=== PATIENT | female | born 1965 | race African-American/Black ===

== ENCOUNTER 2017-05-17 13:20 | Emergency (ER) | payer OTHER ==
[2017-05-17 13:27] VITALS: BMI 21.0
--- NOTE | 2017-05-17 13:59 | PDOC ---
History of Present Illness - General Chief Complaint: Respiratory Stated Complaint: SICK Time Seen by Provider: 05/17/17 13:34 History Source: Patient Exam Limitations: No Limitations - History of Present Illness Initial Comments: This is a 51 YOF with h/o asthma (uses albuterol, Advair, and montelukast), SLE (not on steroids), HTN, and pre-diabetes who presents from her PCP's office ( Ferny Cardoza) c/o three weeks of progressive cough with green phlegm, left lower rib pain, fever to 103 at home, chills, sore throat, shortness of breath, palpitations at night, and nausea. Her rib pain is in both the front and back of the left lower ribs and is 10/10, and worsens when she lays flat. She saw Dr. Cardoza three weeks ago and was prescribed a Z-pack which she took. She was also prescribed an antifungal for a years infection in the urine at that time. She followed up with Dr. Cardoza today and was intructed to come here to the ED. 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 Past History - Past Medical History Allergies/Adverse Reactions: Allergies Allergy/AdvReac Type Severity Reaction Status Date / Time ibuprofen [From Motrin] Allergy Mild Rash Verified 05/17/17 13:54 lactose Allergy Mild Nausea Verified 05/17/17 13:54 morphine Allergy Mild Rash Verified 05/17/17 13:54 theophylline anhydrous Allergy Mild Rash Verified 05/17/17 13:54 [From Brad-Dur] hydralazine AdvReac Mild Itching Verified 05/17/17 13:54 Home Medications: Ambulatory Orders Enalapril Maleate [Vasotec -] 20 mg PO DAILY 06/17/15 Fluticasone/Salmeterol [Advair 250-50 Diskus] 1 each IH BID PRN 06/17/15 Hydrochlorothiazide [Hctz -] 50 mg PO DAILY 06/17/15 Montelukast Na [Singulair -] 10 mg PO HS 06/17/15 Acetaminophen/Caffeine/Butalb [Fioricet -] 1 tab PO TID PRN #12 tablet MDD 3 11/16 Albuterol Sulfate Inhaler - [Ventolin Hfa Inhaler -] 1 - 2 inh PO QID 03/08/16 Hydrochlorothiazide [Hctz -] 50 mg PO DAILY 03/08/16 Metoclopramide HCl [Reglan] 10 mg PO BID PRN #10 tablet MDD 2 03/08/16 Simvastatin [Zocor -] 40 mg PO HS 03/08/16 Albuterol 0.083% Nebulizer Maria Fernanda [Ventolin 0.083% Nebulizer Soln -] 1 neb NEB Q4H #20 vial 05/17/17 Amoxicillin - [Amoxicillin 500mg Capsule -] 500 mg PO TID #21 capsule 05/17/17 Prednisone [Deltasone] 40 mg PO DAILY #4 tablet 05/17/17 Anemia: Yes (iron defeciency) Asthma: Yes Cardiac Disorders: Yes (chest pain) COPD: No GI Disorders: Yes (constipated) HTN: Yes Hypercholesterolemia: Yes - Surgical History Abdominal Surgery: Yes Orthopedic Surgery: Yes (b/l knee arthscopy) - Immunization History Immunization Up to Date: No - Suicide/Smoking/Psychosocial Hx Smoking Status: No Smoking History: Never smoked Have you smoked in the past 12 months: No Number of Cigarettes Smoked Daily: 0 Hx Alcohol Use: No Drug/Substance Use Hx: No Substance Use Type: None Hx Substance Use Treatment: No Review of Systems - Review of Systems Able to Perform ROS?: Yes Constitutional: Yes: Chills, Fever. No: Unexplained wgt Loss HEENTM: Yes: Ear Pain, Difficulty Swallowing (2/2 pain). No: Nose Congestion Respiratory: Yes: Cough, Shortness of Breath, Productive cough Cardiac (ROS): Yes: Chest Pain (left lower rib pain), Palpitations (at night when laying flat only) ABD/GI: Yes: Nausea. No: Constipated, Diarrhea, Vomiting : No: Burning, Dysuria Musculoskeletal: No: Back Pain, Neck Pain Integumentary: No: Bruising, Rash Neurological: No: Headache, Numbness, Tingling, Weakness, Dizziness Endocrine: No: Unexplained Weight Gain, Unexplained Weight Loss *Physical Exam - Vital Signs Last Vital Signs Temp Pulse Resp BP Pulse Ox 98.1 F 97 H 22 142/92 97 05/17/17 13:24 05/17/17 13:24 05/17/17 13:24 05/17/17 13:24 05/17/17 13:24 - Physical Exam General Appearance: Yes: Nourished, Appropriately Dressed, Mild Distress, Other (intermittently tearful and anxious, answers questions appropriately) HEENT: positive: EOMI, Normal Voice, Hearing Grossly Normal, TM Erythema (left) . negative: Scleral Icterus (R), Scleral Icterus (L), Nasal Congestion Neck: positive: Trachea midline, Supple. negative: Tender, Rigid Respiratory/Chest: positive: Lungs Clear, Normal Breath Sounds. negative: Chest Tender, Respiratory Distress, Crackles, Rhonchi, Stridor, Wheezing Cardiovascular: positive: Regular Rhythm, Regular Rate, Murmur (2/6 late systolic murmur) Gastrointestinal/Abdominal: positive: Normal Bowel Sounds, Soft. negative: Tender, Organomegaly, Pulsatile Mass, Guarding Musculoskeletal: positive: Normal Inspection. negative: Decreased Range of Motion, Vertebral Tenderness Extremity: positive: Normal Capillary Refill, Normal Inspection, Normal Range of Motion. negative: Tender, Cyanosis Integumentary: positive: Normal Color, Dry, Warm. 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 VS wnl and patient in mild distress but no respiratory distress, 2/6 systolic murmur at LUSB. Left EAC with mild erythema without TM changes, tender to manipulation of the tragus. DDX IBNLT PNA, bronchitis, pericarditis, CHF, OM, anemia, ACS, etc. Ordered is CBCD, CMP, Mg, Phos, coags, cardiac panel, lactate, blood cx, UA cx, EKG. SXS control with Tylenol, GI cocktail, prednisone, robitussin AC. 05/17/17 15:07 Spoke with Pt's PCP Ferny Cardoza who states she initially planned to give Pt E- Rx for Levaquin and Prednisone. Instead sent patient to the ED for generalized weakness, lack of improvement after nebulizer tx. States patient always has musculoskeletal pain complaints in her office. She was concerned the patient should have additional blood work and CXR, further workup. Patient is found to be hypokalemic to 2.8 and this is replaced with 60 mEq potassium solution. EKG with flipped T-waves inferiorly-anteriorly which she has had in the past. Repeat troponin is negative, repeat potassium is wnl. E-Rx sent for amoxicillin for OM, prednisone, and albuterol nebs. The patient is appropriate for DC home with close OP followup. *DC/Admit/Observation/Transfer Diagnosis at time of Disposition: Hypokalemia, Bronchitis Otitis media Qualifiers: Otitis media type: unspecified Chronicity: acute Qualified Code(s): H66.90 - Otitis media, unspecified, unspecified ear - Discharge Dispostion Disposition: HOME Condition at time of disposition: Stable Admit: No - Prescriptions Prescriptions: Albuterol 0.083% Nebulizer Maria Fernanda [Ventolin 0.083% Nebulizer Soln -] 1 neb NEB Q4H #20 vial Amoxicillin - [Amoxicillin 500mg Capsule -] 500 mg PO TID #21 capsule Prednisone [Deltasone] 40 mg PO DAILY #4 tablet - Referrals Referrals: Ferny Cardoza [Primary Care Provider] - - Patient Instructions Additional Instructions: You were seen in the ER for cough, sore throat, rib pain, fever, and palpitations. We did blood laboratories, urine laboratories, EKGs and a chest x- ray and we found low potassium in your blood, but we did not find any other new changes that were concerning. We gave you a potassium supplement and re-checked it to be normal. Though we did not see anything on your chest x-ray, we believe you have bronchitis/asthma and are sending prednisone to your pharmacy. We did find a small left ear infection and we are sending amoxicillin to the [facility] as well. Please take the whole prescription of amoxicillin. Please also take Tylenol as needed for rib pain. Follow up with Dr. Cardoza to discuss your low potassium. - Post Discharge Activity
--- NOTE | 2017-05-17 14:20 | PDOC ---
Attending Attestation - Resident Resident Name: Linnea Guzman - ED Attending Attestation I have performed the following: I have examined & evaluated the patient, The case was reviewed & discussed with the resident, I agree w/resident's findings & plan, Exceptions are as noted - HPI HPI: 05/17/17 14:19 51y F hx of asthma, lupus, htn, hl, prsents with 3 weeks of cough productive of greenish phlegm ssociated with fever/chlls and L/R sided chest/rip pain, tmax of 103 at home, sore throat. was given zpack by pmd that she has completed , but she has been having pain i nthe b/l chest since saturday worse when she takes a deep brath and coughs. Pt notes her cough is productive of greenish sputum sometimes tingued with pink. Pt denies any LE edema, calf pain. 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 suspect the pts symptoms c/w viral syndrome cp likely msk rib pain will give pts robitussin AC, lidocain for her sore throat, tylenol fo rpain pts labs reviewed k noted hypokalemic to 2.8 may be secondary to HCTZ use and decreased PO intake. will replete and will hav pt recheck this with her PMD. cxr unremarkable w/o signs of pna will erasss and obtain trop x 2 Heart Score/ECG Review - ECG Impressions Comment:: 05/17/17 17:43 ekg performed 05/17/2017 at 14:55 NSR rate of 71 twi in II, III, AVF
[2017-05-17] MEDS ORDERED: ACETAMINOPHEN 500 MG TABLET (FP) PO ONE (14:32)
[2017-05-17 14:56] LABS: BASO % 0.7 % (0-2.0); EOS % 0.8 % (0-4.5); MCH 29.6 pg (25.7-33.7); MCHC 33.2 g/dl (32.0-36.0); MEAN CELL VOLUME 89.2 fl (80-96); MEAN PLT VOLUME 9.5 fl (7.5-11.1); NEUT % 47.2 % (42.8-82.8); PLATELET COUNT 199 K/MM3 (134-434); RDW 13.1 % (11.6-15.6); WHITE BLOOD COUNT 4.3 K/mm3 (4.0-10.0)
[2017-05-17] MEDS ORDERED: ACETAMINOPHEN 325 MG TABLET (FP) ONE (14:59)
[2017-05-17 15:03] LABS: INR 1.08 (0.82-1.09); PROTHROMBIN TIME (PATIENT) 12.2 SEC (9.98-11.88)
[2017-05-17] MEDS ORDERED: ACETAMINOPHEN 650 MG/20.3 ML ORAL SOLUTION (CUPS) ONE (15:03)
[2017-05-17 15:25] LABS: ALBUMIN 4.2 g/dl (3.4-5.0); ANION GAP 8 (8-16); BILIRUBIN,TOTAL 0.8 mg/dL (0.2-1.0); CALCIUM 8.8 mg/dL (8.5-10.1); CO2 31 mmol/L (21-32); CREATININE 0.7 mg/dL (0.55-1.02); GLUCOSE,RANDOM 132 mg/dL (74-106); SGOT/AST 16 U/L (15-37); SGPT/ALT 24 U/L (12-78); TOT PROT 7.2 g/dl (6.4-8.2)
[2017-05-17 15:28] LABS: ALK PHOS 95 U/L (45-117); CPK 72 IU/L (26-192); TROPONIN I < 0.02 ng/ml (0.00-0.05)
[2017-05-17] MEDS ORDERED: POTASSIUM CHLORIDE ORAL LIQUID 20 MEQ/15 ML PO ONE (16:01)
[2017-05-17] MEDS ORDERED: POTASSIUM CHLORIDE ORAL LIQUID 20 MEQ/15 ML ONE (16:20)
[2017-05-17 16:37] LABS: URINE APPEARANCE SLCLOUDY; URINE BILIRUBIN NEGATIVE (NEGATIVE); URINE BLOOD NEGATIVE (NEGATIVE); URINE COLOR AMBER; URINE GLUCOSE (UA) NEGATIVE (NEGATIVE); URINE KETONE 1+ (NEGATIVE); URINE LEUK ESTERASE NEGATIVE (NEGATIVE); URINE NITRITE NEGATIVE (NEGATIVE); URINE PROTEIN NEGATIVE (NEGATIVE)
[2017-05-17] MEDS ORDERED: LIDOCAINE VISCOUS 2% ORAL/TOP 20 ML UNIT-DOSE CUP MM ONE (17:02)
[2017-05-17] MEDS ORDERED: guaiFENesin/CODEINE 10 ML UNIT-DOSE CUPS PO ONE (17:02)
[2017-05-17] MEDS ORDERED: MAG HYDROX/AL HYDROX/SIMETH 30 ML UNIT-DOSE CUP PO ONE (17:02)
[2017-05-17] MEDS ORDERED: MAG HYDROX/AL HYDROX/SIMETH 30 ML UNIT-DOSE CUP ONE (17:19)
[2017-05-17] MEDS ORDERED: LIDOCAINE VISCOUS 2% ORAL/TOP 20 ML UNIT-DOSE CUP ONE (17:19)
[2017-05-17] MEDS ORDERED: guaiFENesin 200 MG/10 ML 10 ML UNIT-DOSE CUPS ONE (17:20)
[2017-05-17 19:20] LABS: ANION GAP 9 (8-16); CO2 29 mmol/L (21-32); CREATININE 0.7 mg/dL (0.55-1.02); GLUCOSE,RANDOM 152 mg/dL (74-106)
[2017-05-17] MEDS ORDERED: predniSONE 20 MG TABLET (UD) PO ONE (19:21)
[2017-05-17 19:23] LABS: CPK 58 IU/L (26-192); TROPONIN I < 0.02 ng/ml (0.00-0.05)
[2017-05-17] MEDS ORDERED: predniSONE 20 MG TABLET (UD) ONE (19:34)
[2017-05-17 20:00] VITALS: BP 160/90; PULSE 60; TEMP 98
[2017-05-17 20:01] LABS: URINE LEUK ESTERASE Negative (NEGATIVE)
--- NOTE | 2017-05-21 01:47 | EKG ---
Test Reason : Blood Pressure : / mmHG Vent. Rate : 074 BPM Atrial Rate : 074 BPM P-R Int : 180 ms QRS Dur : 088 ms QT Int : 406 ms P-R-T Axes : 016 072 034 degrees QTc Int : 450 ms NORMAL SINUS RHYTHM SEPTAL INFARCT (CITED ON OR BEFORE 18-FEB-2009) ABNORMAL ECG WHEN COMPARED WITH ECG OF 17-MAY-2017 14:55, T WAVE VARIATION Confirmed by LAI STEVENS MD ([id number]) on 05/21/2017 1:47:14 AM Referred By: Confirmed By:LAI STEVENS MD
--- NOTE | 2017-05-21 01:49 | EKG ---
Test Reason : Blood Pressure : / mmHG Vent. Rate : 071 BPM Atrial Rate : 071 BPM P-R Int : 144 ms QRS Dur : 082 ms QT Int : 432 ms P-R-T Axes : 020 066 004 degrees QTc Int : 469 ms NORMAL SINUS RHYTHM WITH SINUS ARRHYTHMIA SEPTAL INFARCT (CITED ON OR BEFORE 18-FEB-2009) ABNORMAL ECG WHEN COMPARED WITH ECG OF 18-JUN-2015 15:36, Confirmed by HILDA MUHAMMAD, LAI ([id number]) on 05/21/2017 1:49:42 AM Referred By: Confirmed By:LAI STEVENS MD
== END 2017-05-17 20:00 | disposition home or self-care (01) ==
LOC: JER 13:20
DX: J40 Bronchitis, not specified as acute or chronic (principal); H66.92 Otitis media, unspecified, left ear; E87.6 Hypokalemia
CPT/HCPCS: 36415; 71020-TC; 80048; 80053; 81003; 82550; 83605; 83880; 84484; 85025; 85610; 87040; 87086; 93005; 93010; 99284-25

== ENCOUNTER 2017-06-26 08:27 | Emergency (ER) | payer OTHER ==
[2017-06-26 08:35] VITALS: BMI 21.9
--- NOTE | 2017-06-26 08:42 | PDOC ---
History of Present Illness - General Chief Complaint: Injury Stated Complaint: FALL/JOB INJURY Time Seen by Provider: 06/26/17 08:42 Past History - Past Medical History Allergies/Adverse Reactions: Allergies Allergy/AdvReac Type Severity Reaction Status Date / Time ibuprofen [From Motrin] Allergy Mild Rash Verified 06/26/17 08:31 lactose Allergy Mild Nausea Verified 06/26/17 08:31 morphine Allergy Mild Rash Verified 06/26/17 08:31 theophylline anhydrous Allergy Mild Rash Verified 06/26/17 08:31 [From Brad-Dur] hydralazine AdvReac Mild Itching Verified 06/26/17 08:31 Home Medications: Ambulatory Orders Enalapril Maleate [Vasotec -] 20 mg PO DAILY 06/17/15 Montelukast Na [Singulair -] 10 mg PO HS 06/17/15 Hydrochlorothiazide [Hctz -] 50 mg PO DAILY 03/08/16 Loratadine [Claritin] 10 mg PO DAILY 06/26/17 Metformin HCl [Glucophage -] 500 mg PO DAILY 06/26/17 Omeprazole 40 mg PO DAILY 06/26/17 Anemia: Yes (iron defeciency) Asthma: Yes Cardiac Disorders: Yes (chest pain) COPD: No GI Disorders: Yes (constipated) HTN: Yes Hypercholesterolemia: Yes - Surgical History Abdominal Surgery: Yes Orthopedic Surgery: Yes (b/l knee arthscopy) - Immunization History Immunization Up to Date: No - Suicide/Smoking/Psychosocial Hx Smoking Status: No Smoking History: Never smoked Have you smoked in the past 12 months: No Number of Cigarettes Smoked Daily: 0 Information on smoking cessation initiated: No Hx Alcohol Use: No Drug/Substance Use Hx: No Substance Use Type: None Hx Substance Use Treatment: No *Physical Exam - Vital Signs Last Vital Signs Temp Pulse Resp BP Pulse Ox 97.7 F 59 L 18 165/89 100 06/26/17 08:31 06/26/17 08:31 06/26/17 08:31 06/26/17 08:31 06/26/17 08:31
[2017-06-26] MEDS ORDERED: ACETAMINOPHEN 325 MG TABLET (FP) ONE (09:03)
[2017-06-26] MEDS ORDERED: CYCLOBENZAPRINE HCL 10 MG TABLET (FP) ONE (09:03)
[2017-06-26] MEDS ORDERED: CYCLOBENZAPRINE HCL 10 MG TABLET (FP) PO ONE (09:04)
[2017-06-26] MEDS ORDERED: ACETAMINOPHEN 325 MG TABLET (FP) PO ONE (09:04)
--- NOTE | 2017-06-26 09:04 | PDOC ---
History of Present Illness - General Chief Complaint: Injury Stated Complaint: FALL/JOB INJURY Time Seen by Provider: 06/26/17 08:42 Past History - Past Medical History Allergies/Adverse Reactions: Allergies Allergy/AdvReac Type Severity Reaction Status Date / Time ibuprofen [From Motrin] Allergy Mild Rash Verified 06/26/17 08:31 lactose Allergy Mild Nausea Verified 06/26/17 08:31 morphine Allergy Mild Rash Verified 06/26/17 08:31 theophylline anhydrous Allergy Mild Rash Verified 06/26/17 08:31 [From Brad-Dur] hydralazine AdvReac Mild Itching Verified 06/26/17 08:31 Home Medications: Ambulatory Orders Enalapril Maleate [Vasotec -] 20 mg PO DAILY 06/17/15 Montelukast Na [Singulair -] 10 mg PO HS 06/17/15 Hydrochlorothiazide [Hctz -] 50 mg PO DAILY 03/08/16 Cyclobenzaprine HCl [Flexeril -] 10 mg PO HS #10 tablet 06/26/17 Loratadine [Claritin] 10 mg PO DAILY 06/26/17 Metformin HCl [Glucophage -] 500 mg PO DAILY 06/26/17 Omeprazole 40 mg PO DAILY 06/26/17 Oxycodone HCl/Acetaminophen [Percocet 5-325 mg Tablet] 1 tab PO Q6H #10 tablet MDD 4 06/26/17 Anemia: Yes (iron defeciency) Asthma: Yes Cardiac Disorders: Yes (chest pain) COPD: No GI Disorders: Yes (constipated) HTN: Yes Hypercholesterolemia: Yes - Surgical History Abdominal Surgery: Yes Orthopedic Surgery: Yes (b/l knee arthscopy) - Immunization History Immunization Up to Date: No - Suicide/Smoking/Psychosocial Hx Smoking Status: No Smoking History: Never smoked Have you smoked in the past 12 months: No Number of Cigarettes Smoked Daily: 0 Information on smoking cessation initiated: No Hx Alcohol Use: No Drug/Substance Use Hx: No Substance Use Type: None Hx Substance Use Treatment: No *Physical Exam - Vital Signs Last Vital Signs Temp Pulse Resp BP Pulse Ox 97.7 F 59 L 18 165/89 100 06/26/17 08:31 06/26/17 08:31 06/26/17 08:31 06/26/17 08:31 06/26/17 08:31 *DC/Admit/Observation/Transfer Diagnosis at time of Disposition: Elbow pain, right Low back strain Qualifiers: Encounter type: initial encounter Qualified Code(s): S39.012A - Strain of muscle, fascia and tendon of lower back, initial encounter Knee pain, right Qualifiers: Chronicity: acute Qualified Code(s): M25.561 - Pain in right knee - Discharge Dispostion Disposition: HOME Condition at time of disposition: Stable Admit: No - Referrals Referrals: Ferny Cardoza [Primary Care Provider] - - Patient Instructions Printed Discharge Instructions: DI for Low Back Pain Additional Instructions: You fell today. All of your x-rays were negative for fracture. Please take Tylenol 500 mg every 4 hours as needed for pain. If you have breakthrough pain please substitute the Tylenol dose with the Percocet. You were also prescribed Flexeril. Please take this medication at 4 and then today at 11. After today take this medication at night. Do not drive after taking this medication as it may make you sleepy. You may use heating packs to the areas to help with pain. Please follow-up with your primary care doctor this week. Return to the emergency department if you have worsening pain, swelling, numbness and tingling down her extremities, bladder or bowel incontinence, or any changes in your symptoms. - Post Discharge Activity Forms/Work/School Notes: Back to Work
--- NOTE | 2017-06-26 10:53 | PDOC ---
*Physical Exam - Vital Signs Last Vital Signs Temp Pulse Resp BP Pulse Ox 97.7 F 59 L 18 165/89 100 06/26/17 08:31 06/26/17 08:31 06/26/17 08:31 06/26/17 08:31 06/26/17 08:31 ED Treatment Course - Medications Given in the ED: ED Medications Discontinued Medications Generic Name Dose Route Start Last Admin Trade Name Freq PRN Reason Stop Dose Admin Acetaminophen 650 mg 06/26/17 09:04 06/26/17 09:24 Tylenol - PO 06/26/17 09:05 650 mg ONCE ONE Administration Cyclobenzaprine HCl 10 mg 06/26/17 09:04 06/26/17 09:24 Flexeril - PO 06/26/17 09:05 10 mg ONCE ONE Administration Medical Decision Making - Medical Decision Making 06/26/17 10:52 This is a 51-year-old female presenting to the emergency department due to mechanical fall. Patient reports lower back pain. No head trauma, loss of consciousness *DC/Admit/Observation/Transfer - Referrals Referrals: Ferny Cardoza [Primary Care Provider] - - Patient Instructions - Post Discharge Activity
[2017-06-26 13:47] VITALS: BP 105/60; PULSE 64; TEMP 97.6
== END 2017-06-26 14:11 | disposition home or self-care (01) ==
LOC: JER 08:27
DX: S39.012A Strain of muscle, fascia and tendon of lower back, initial encounter (principal); V78.1XXA Passenger on bus injured in noncollision transport accident in nontraffic accident, initial encounter; Y92.414 Local residential or business street as the place of occurrence of the external cause; Y93.89 Activity, other specified; Y99.0 Civilian activity done for income or pay; D50.8 Other iron deficiency anemias; I10 Essential (primary) hypertension; E78.00 Pure hypercholesterolemia, unspecified; J45.909 Unspecified asthma, uncomplicated
CPT/HCPCS: 72100-TC; 73070-TC-RT; 73560-TC-RT; 73590-TC-RT; 99282-25

== ENCOUNTER 2017-11-08 23:43 | Emergency (ER) | payer OTHER ==
--- NOTE | 2017-11-09 00:09 | PDOC ---
Attending Attestation - ED Attending Attestation I have performed the following: I have examined & evaluated the patient, The case was reviewed & discussed with the resident, I agree w/resident's findings & plan, Exceptions are as noted - Medical Decision Making 11/09/17 00:17 Documentation prepared by Jayda Arshad, acting as medical service representative for Ashwini Razo MD. <Jayda Arshad - Last Filed: 11/09/17 00:16> - Resident Resident Name: Facundo Hussein - HPI HPI: 11/12/17 09:50 Pt presents to the ED complaining of bilateral shooting leg pain which is chronic but worse than usual and chest pain and headache which are also chronic. Denies change in her chest pain or headache. Also complains of tingling sensation in her feet. History of poorly controlled DM. - Physicial Exam PE: 11/12/17 09:56 Agree with resident exam. Patient is alert, awake and neurologically intact. Lungs are clear. Heart regular rate and rhythm. Abdomen is soft, non tender, non distended. - Medical Decision Making 11/12/17 09:58 Pt presents to the ED complaining of Crampy pain and numbness to bilateral lower extremities consistent with peripheral neuropathy. Patient has a history of poorly controlled DM, and has been resistant to taking her diabetic medications. She was counselled on the importance of glycemic control. Chest pain and headache appear to be chronic for her and unchanged. EKG shows no evidence of ischemia, and cardiac enzymes checked to rule out CT and are negative. Will discharge home with referral to PMD. <Ashwini Razo - Last Filed: 11/12/17 10:02>
[2017-11-09 00:13] VITALS: BP 139/95; PULSE 60; TEMP 97.8; BMI 21.4
--- NOTE | 2017-11-09 01:07 | PDOC ---
History of Present Illness - General Chief Complaint: Chest Pain Stated Complaint: PAIN Time Seen by Provider: 11/09/17 00:05 Past History - Past Medical History Allergies/Adverse Reactions: Allergies Allergy/AdvReac Type Severity Reaction Status Date / Time ibuprofen [From Motrin] Allergy Mild Rash Verified 11/09/17 00:13 lactose Allergy Mild Nausea Verified 11/09/17 00:13 morphine Allergy Mild Rash Verified 11/09/17 00:13 theophylline anhydrous Allergy Mild Rash Verified 11/09/17 00:13 [From Brad-Dur] hydralazine AdvReac Mild Itching Verified 11/09/17 00:13 Home Medications: Ambulatory Orders Enalapril Maleate [Vasotec -] 20 mg PO DAILY 06/17/15 Montelukast Na [Singulair -] 10 mg PO HS 06/17/15 Hydrochlorothiazide [Hctz -] 50 mg PO DAILY 03/08/16 Cyclobenzaprine HCl [Flexeril -] 10 mg PO HS #10 tablet 06/26/17 Loratadine [Claritin] 10 mg PO DAILY 06/26/17 Omeprazole 40 mg PO DAILY 06/26/17 Oxycodone HCl/Acetaminophen [Percocet 5-325 mg Tablet] 1 tab PO Q6H #10 tablet MDD 4 06/26/17 metFORMIN HCL [Glucophage -] 500 mg PO DAILY 06/26/17 Gabapentin 300 mg PO ONCE #14 ml 11/09/17 Anemia: Yes (iron defeciency) Asthma: Yes Cardiac Disorders: Yes (chest pain) COPD: No GI Disorders: Yes (constipated) HTN: Yes Hypercholesterolemia: Yes - Surgical History Abdominal Surgery: Yes Orthopedic Surgery: Yes (b/l knee arthscopy) - Immunization History Immunization Up to Date: No - Suicide/Smoking/Psychosocial Hx Smoking Status: No Smoking History: Never smoked Have you smoked in the past 12 months: No Number of Cigarettes Smoked Daily: 0 Information on smoking cessation initiated: No Hx Alcohol Use: No Drug/Substance Use Hx: No Substance Use Type: None Hx Substance Use Treatment: No *Physical Exam - Vital Signs Last Vital Signs Temp Pulse Resp BP Pulse Ox 97.8 F 60 18 139/95 99 11/09/17 00:08 11/09/17 00:08 11/09/17 00:08 11/09/17 00:08 11/09/17 00:08 ED Treatment Course - LABORATORY CBC & Chemistry Diagram: 11/09/17 01:40 11/09/17 01:40 *DC/Admit/Observation/Transfer Diagnosis at time of Disposition: Uncontrolled diabetes mellitus, Diabetic neuropathy - Discharge Dispostion Condition at time of disposition: Fair - Prescriptions Prescriptions: Gabapentin 300 mg PO ONCE #14 ml - Referrals - Patient Instructions Additional Instructions: Follow up with your primary care provider within the next day. Come back to the emergency department for any new, worsening or concerning symptom. - Post Discharge Activity
[2017-11-09 01:54] LABS: BASO % 0.8 % (0-2.0); EOS % 1.6 % (0-4.5); HEMATOCRIT 37.4 % (32.4-45.2); HEMOGLOBIN 12.7 GM/dL (10.7-15.3); LYMPH % 40.3 % (8-40); MCH 30.1 pg (25.7-33.7); MCHC 34.1 g/dl (32.0-36.0); MEAN CELL VOLUME 88.4 fl (80-96); MEAN PLT VOLUME 10.1 fl (7.5-11.1); MONO % 9.9 % (3.8-10.2); NEUT % 47.4 % (42.8-82.8); PLATELET COUNT 218 K/MM3 (134-434); RBC 4.23 M/mm3 (3.60-5.2); RDW 13.2 % (11.6-15.6); WHITE BLOOD COUNT 5.4 K/mm3 (4.0-10.0)
[2017-11-09 01:55] LABS: URINE APPEARANCE CLEAR; URINE BILIRUBIN NEGATIVE (<2.0 mg/dL); URINE COLOR STRAW; URINE GLUCOSE (UA) 3+ (NEGATIVE); URINE KETONE NEGATIVE (NEGATIVE); URINE LEUK ESTERASE NEGATIVE (NEGATIVE); URINE NITRITE NEGATIVE (NEGATIVE); URINE PROTEIN NEGATIVE (NEGATIVE); URINE UROBILINOGEN NEGATIVE mg/dL (0.2-1.0)
[2017-11-09] MEDS ORDERED: ACETAMINOPHEN 1000 MG/100 ML VIAL (NON FORMULARY) IVPB ONE (02:12)
[2017-11-09 02:19] LABS: ALBUMIN 3.9 g/dl (3.4-5.0); ANION GAP 7 (8-16); BILIRUBIN,TOTAL 0.8 mg/dL (0.2-1.0); BLOOD UREA NITROGEN 11 mg/dL (7-18); CALCIUM 9.3 mg/dL (8.5-10.1); CHLORIDE 93 mmol/L (98-107); CO2 33 mmol/L (21-32); CREATININE 0.7 mg/dL (0.55-1.02); GLUCOSE,RANDOM 277 mg/dL (74-106); MAGNESIUM 1.7 mg/dL (1.8-2.4); PHOSPHOROUS 3.7 mg/dL (2.5-4.9); POTASSIUM 3.3 mmol/L (3.5-5.1); SGOT/AST 15 U/L (15-37); SGPT/ALT 28 U/L (12-78); SODIUM 133 mmol/L (136-145); TOT PROT 6.7 g/dl (6.4-8.2)
[2017-11-09 02:20] LABS: ALK PHOS 90 U/L (45-117)
[2017-11-09] MEDS ORDERED: ACETAMINOPHEN INJECTION 100 ML IVPB ONE (02:24)
[2017-11-09] MEDS ORDERED: SODIUM CHLORIDE 1,000 ML IV STA (02:30)
--- NOTE | 2017-11-09 14:37 | EKG ---
Test Reason : Blood Pressure : / mmHG Vent. Rate : 054 BPM Atrial Rate : 054 BPM P-R Int : 192 ms QRS Dur : 098 ms QT Int : 480 ms P-R-T Axes : 035 073 001 degrees QTc Int : 455 ms SINUS BRADYCARDIA POSSIBLE ANTEROSEPTAL INFARCT (CITED ON OR BEFORE 18-FEB-2009) ABNORMAL ECG WHEN COMPARED WITH ECG OF 17-MAY-2017 19:09, NO SIGNIFICANT CHANGE WAS FOUND Confirmed by MD Ha, Jean ([id number]) on 11/09/2017 2:37:11 PM Referred By: Confirmed By:Jean Bonner MD
== END 2017-11-09 03:16 | disposition home or self-care (01) ==
LOC: JER 23:43
PROC: 3E033NZ Introduction of Analgesics, Hypnotics, Sedatives into Peripheral Vein, Percutaneous Approach (ICD-10-PCS; principal; 2017-11-08)
DX: E13.40 Other specified diabetes mellitus with diabetic neuropathy, unspecified (principal); Z79.84 Long term (current) use of oral hypoglycemic drugs; J45.909 Unspecified asthma, uncomplicated; I10 Essential (primary) hypertension; E78.00 Pure hypercholesterolemia, unspecified
CPT/HCPCS: 36415; 80053; 81003; 82962; 83735; 84100; 84484; 85025; 93005; 93010; 99281-25; 99283-25; J0131

== ENCOUNTER 2018-06-11 09:25 | Inpatient (IN) | payer OTHER ==
[2018-06-11 09:58] VITALS: BMI 18.3
--- NOTE | 2018-06-11 10:16 | PDOC ---
History of Present Illness - History of Present Illness Initial Comments: 06/11/18 11:17 The patient is a 52 year old female, with a significant past medical history of asthma (uses albuterol, Advair, and montelukast), SLE (not on steroids), HTN, HLD, migraines and diabetes (taking glipizide) , anxiety who presents to the emergency department with left sided arm and leg tingling and weakness since yesterday. She states she was washing dishes yesterday when she developed a painful tingling to her left fingers and arm which gradually radiated to her left lower extremity. She states she woke up and went to work this morning, however, states the tingling became more painful and her left extremities became weak. She states she felt like she could no walk which prompted her ED visit. She reports the pain feels like a constant, migrating pain which she describes as a shooting pain. She also reports a tightness to the left side of her face. She states she has experienced this once in the past, was seen in the ED where she was found to have low magnesium and low potassium requiring a short hospital stay. She denies taking any medications for her symptoms. She denies any other complaints at this time, however, states she is feeling anxious. Denies trauma or sick contacts. The patient denies chest pain, shortness of breath, headache and dizziness. The patient denies fever, chills, nausea, vomit, diarrhea and constipation. The patient denies dysuria, frequency, urgency and hematuria. Current Meds: glipizide, atenolol, enalapril, simvastatin, hydrochlorothiazide, loratadine, singulair Allergies: ibuprofen, lactose, morphine, theophylline anhydrous, hydralazine Past surgical history: hysterectomy Social history: denies toxic habits PCP - none, no longer sees Dr. Cardoza <Vera Murray - Last Filed: 06/11/18 12:13> - General History Source: Patient Exam Limitations: No Limitations <Lita Leon - Last Filed: 06/11/18 12:20> - General Chief Complaint: Weakness Stated Complaint: Pain Time Seen by Provider: 06/11/18 09:49 NIH Stroke Scale - Last Known Well Date/Time & Onset Date Last Known Well: 06/09/18 - Initial Evaluation Level of consciousness: Alert Ask patient the month and their age: Answers both correctly Ask patient to open & close eyes; make fist and let go: Obeys both correctly Best gaze (horizontal eye movement): Normal Visual field testing: No visual field loss Facial paresis (Show teeth/raise eyebrows/close eyes tight): Normal symmetrical movement Motor Function: Left Arm: Normal Motor Function: Right Arm: Normal (extends arm 90 (or 45) degrees for 10 seconds without drift Motor Function: Left Leg: Normal (extends leg 30 degrees for 5 seconds without drift) Motor Function: Right Leg: Normal (extends leg 30 degrees for 5 seconds without drift) Limb Ataxia: No ataxia Sensory(Use pinprick test arms,legs,trunk,face/side to side): Mild to moderate decrease in sensation Best language (Describe picture, name items, read sentences): No Aphasia Dysarthria (read several words): Normal articulation Extinction and Inattention: No abnormality - Total Score NIH Stroke Scale Score: 1 <Lita Leon - Last Filed: 06/11/18 12:20> Past History <Vera Murray - Last Filed: 06/11/18 12:13> - Past Medical History Anemia: Yes (iron defeciency) Asthma: Yes Cardiac Disorders: Yes (chest pain) COPD: No Diabetes: Yes GI Disorders: Yes (constipated) HTN: Yes Hypercholesterolemia: Yes - Surgical History Abdominal Surgery: Yes Orthopedic Surgery: Yes (b/l knee arthscopy) - Immunization History Immunization Up to Date: No - Suicide/Smoking/Psychosocial Hx Smoking Status: No Smoking History: Never smoked Have you smoked in the past 12 months: No Number of Cigarettes Smoked Daily: 0 Information on smoking cessation initiated: No Hx Alcohol Use: No Drug/Substance Use Hx: No Substance Use Type: None Hx Substance Use Treatment: No <Lita Leon - Last Filed: 06/11/18 12:20> - Past Medical History Allergies/Adverse Reactions: Allergies Allergy/AdvReac Type Severity Reaction Status Date / Time ibuprofen [From Motrin] Allergy Mild Rash Verified 11/09/17 00:13 lactose Allergy Mild Nausea Verified 11/09/17 00:13 morphine Allergy Mild Rash Verified 11/09/17 00:13 theophylline anhydrous Allergy Mild Rash Verified 11/09/17 00:13 [From Brad-Dur] hydralazine AdvReac Mild Itching Verified 11/09/17 00:13 Home Medications: Ambulatory Orders Enalapril Maleate [Vasotec -] 20 mg PO DAILY 06/17/15 Montelukast Na [Singulair -] 10 mg PO HS 06/17/15 Hydrochlorothiazide [Hctz -] 50 mg PO DAILY 03/08/16 Loratadine [Claritin] 10 mg PO DAILY 06/26/17 Atenolol [Tenormin -] 25 mg PO DAILY 11/09/17 Simvastatin [Zocor -] 40 mg PO DAILY 11/09/17 Glipizide [Glipizide ER] 10 mg PO DAILY 06/11/18 Review of Systems - Review of Systems Able to Perform ROS?: Yes Comments:: 06/11/18 11:17 GENERAL/CONSTITUTIONAL: No fever or chills. no sweats. HEAD, EYES, EARS, NOSE AND THROAT: +blurry vision. No change in hearing. No ear pain or discharge. No sore throat or mouth pain. No difficulty swallowing. No congestion. CARDIOVASCULAR: No chest pain or palpitations, syncope or edema. RESPIRATORY: No SOB, cough, wheezing, or hemoptysis. GASTROINTESTINAL +nausea. No vomiting. No diarrhea or constipation. No bloody stools. GENITOURINARY: No hematuria, dysuria, frequency, urgency or other changes. MUSCULOSKELETAL: No joint or muscle swelling or pain. No neck pain. +chronic lower back pain. SKIN: No rash or changes in skin color or lesions. NEUROLOGIC: (+) painful tingling and weakness to left upper and lower extremities. Left facial tightness. No headache, vertigo, loss of consciousness , HEMATOLOGIC/LYMPHATIC: No anemia, easy bruising/bleeding, or history of blood clots. ALLERGIC/IMMUNOLOGIC: No allergies All other systems reviewed and negative, or as documented in HPI. <Vera Murray - Last Filed: 06/11/18 12:13> *Physical Exam - Vital Signs Last Vital Signs Temp Pulse Resp BP Pulse Ox 98.2 F 76 18 113/59 L 100 06/11/18 09:30 06/11/18 10:30 06/11/18 10:30 06/11/18 10:30 06/11/18 10:30 - Physical Exam Comments: 06/11/18 11:17 General: Well appearing, awake and alert, NAD. HEENT: NCAT, PERRL, EOMI, clear conjunctiva, anicteric, moist mucus membranes, clear oropharynx, no oral lesions.. Neck: neck supple, FROM; no JVD. no carotid bruit. Resp: CTAB, normal and even respirations, no respiratory distress CVS: RRR, no murmurs, 2+ peripheral pulses throughout, no peripheral edema Abdomen: soft, NTND, no rebound or guarding. No CVAT. Back: nontender, normal inspection and ROM MSK: no edema, ROM intact. No clubbing or cyanosis. normal bulk and tone. Point tenderness in left thigh, knee and swain, left upper arm and forearm. Extremities: no calf tenderness Neuro: Alert, oriented to person time and place. No facial droop. No pronator drift. 5/5 shoulder shrug. Decreased sensation to CN V on left face, as well as LUE and LLE. LUE Strength prox and 4 /5, RUE and RLE 5/5. Distal LLE plantar and dorsiflexion 5/5. . Sensation grossly intact to light touch. LIN x4. No cerebellar signs, no dysmetria, bilateral finger to nose and heel to swain equal and symmetric. Speech clear. 2+ patellar reflexes bilaterally. Skin: warm and well perfused, cap refill <2 sec, normal color <Vera Murray - Last Filed: 06/11/18 12:13> - Vital Signs Last Vital Signs Temp Pulse Resp BP Pulse Ox 98.2 F 57 L 18 151/100 100 06/11/18 09:30 06/11/18 09:30 06/11/18 09:30 06/11/18 09:30 06/11/18 09:30 <Lita Leon - Last Filed: 06/11/18 12:20> Moderate Sedation - Procedure Monitoring Vital Signs: Procedure Monitoring Vital Signs Temperature 98.2 F 06/11/18 09:30 Pulse Rate 76 06/11/18 10:30 Respiratory Rate 18 06/11/18 10:30 Blood Pressure 113/59 L 06/11/18 10:30 O2 Sat by Pulse Oximetry (%) 100 06/11/18 10:30 <Vera Murray - Last Filed: 06/11/18 12:13> - Procedure Monitoring Vital Signs: Procedure Monitoring Vital Signs Temperature 98.2 F 06/11/18 09:30 Pulse Rate 57 L 06/11/18 09:30 Respiratory Rate 18 06/11/18 09:30 Blood Pressure 151/100 06/11/18 09:30 O2 Sat by Pulse Oximetry (%) 100 06/11/18 09:30 <Lita Leon - Last Filed: 06/11/18 12:20> Heart Score/ECG Review - ECG Impressions Normal ECG: Yes Comment:: 06/11/18 10:35 EKG normal sinus rhythm, +bradycardic, no interval abnormalities, narrow QRS, ST and T wave segments and morphology normal. Nonspecific T wave abnormalities <Lita Leon - Last Filed: 06/11/18 12:20> ED Treatment Course - LABORATORY CBC & Chemistry Diagram: 06/11/18 10:32 06/11/18 10:32 - ADDITIONAL ORDERS Additional order review: Laboratory Results 06/11/18 06/11/18 10:32 10:32 PT with INR 11.60 INR 0.98 Sodium 143 Potassium 3.6 Chloride 105 Carbon Dioxide 27 Anion Gap 11 BUN 12 Creatinine 0.7 Creat Clearance w eGFR > 60 Random Glucose 90 Calcium 9.3 Total Bilirubin 0.6 AST 24 ALT 33 Alkaline Phosphatase 79 Total Protein 6.8 Albumin 4.1 Triglycerides 40 Cholesterol 241 H Total LDL Cholesterol 136 H HDL Cholesterol 95 H 06/11/18 10:32 RBC 3.74 MCV 89.0 MCHC 35.2 RDW 13.5 MPV 8.6 D Neutrophils % 63.7 D Lymphocytes % 27.1 D Monocytes % 7.5 Eosinophils % 0.8 Basophils % 0.9 - RADIOLOGY Radiograph Interpretation: EXAM#: TYPE/EXAM: RESULT: [id number] CT/HEAD CT (STROKE) Cranial CT without contrast Clinical information evaluate for CVA; status post hysterectomy No intracranial hemorrhage is seen. There is no discrete infarct within the limitations of CT. No extra-axial fluid collection is noted. There is no obvious mass lesion on noncontrast imaging. The ventricles and cisterns appear unremarkable. No calvarial defect is seen. IMPRESSION: No CT evidence of acute intracranial pathology. There has been no obvious interval change in comparison to a prior CT study of 09/01/2013. Reported By: Ramon Colón MD 06/11/18 1119 - Medications Given in the ED: ED Medications Discontinued Medications Generic Name Dose Route Start Last Admin Trade Name Tarun PRN Reason Stop Dose Admin Acetaminophen 1,000 mg 06/11/18 10:22 06/11/18 10:50 Ofirmev Injection - IVPB 06/11/18 10:23 1,000 mg ONCE ONE Administration <Vera Murray - Last Filed: 06/11/18 12:13> - LABORATORY CBC & Chemistry Diagram: 06/11/18 10:32 06/11/18 10:32 <Lita Leon - Last Filed: 06/11/18 12:20> Medical Decision Making - Medical Decision Making 06/11/18 11:39 Dr. Srinivasan was paged at this time requesting a call back for doctor to doctor consult regarding admission. 06/11/18 11:[address] Dr. Peters on this case. Dr. Peters was paged at this time. 06/11/18 11:54 Dr. Ash, neurology, returned the call and the patient's case was discussed <Vera Murray - Last Filed: 06/11/18 12:13> - Medical Decision Making 06/11/18 10:18 I, Lita Leon MD, attest that this document has been prepared under my direction and personally reviewed by me in its entirety. I further attest, that it accurately reflects all work, treatment, procedures and medical decision -making performed by me. See HPI for details DDx CVA/TIA, neuropathy, electrolyte/metabolic derangements, anemia, infection, msk strain, myopathy. Lupus flare, vasculitis. Vital signs reviewed, wnl. Prior notes reviewed, including admissions, discharges and consultations. laboratory results and imaging reviewed, basic labs and lytes wnl, notable for normal coags. LDL/chol elevated, not fasting. Cardiac panel_neg trops, reassuring. EKG normal sinus rhythm, +bradycardic, no interval abnormalities, narrow QRS, ST and T wave segments and morphology normal. 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 ED course: no acute events, not TPA candidate, some subjective paresthesias/ decreased sensation in LUE and LLE. sx onset >24 hours. exam with focal msk tenderness, so possible MSK/myopathy vs paresthesias, volitional component.. due to medical comorbidities, neuro cs , admit for r/o CVA with MRI imaging. - requesting Dr Ash/Lorraine neuro cs, Dispo: admit to telemetry. to Dr Srinivasan, no primary doctor after recent change 06/11/18 12:17 06/11/18 12:19 <Lita Leon - Last Filed: 06/11/18 12:20> *DC/Admit/Observation/Transfer - Attestations Scribe Attestion: 06/11/18 11:17 Documentation prepared by Vera Murray, acting as emergency medical technician for Lita Leon MD <Vera Murray - Last Filed: 06/11/18 12:13> - Discharge Dispostion Decision to Admit order: Yes Decision to Admit order Date/Time: 06/11/18 12:17 <Lita Leon - Last Filed: 06/11/18 12:20> Diagnosis at time of Disposition: Paresthesia - Discharge Dispostion Condition at time of disposition: Guarded
[2018-06-11] MEDS ORDERED: ACETAMINOPHEN 1000 MG/100 ML VIAL (NON FORMULARY) IVPB ONE (10:22)
[2018-06-11 10:41] LABS: BASO % 0.9 % (0-2.0); EOS % 0.8 % (0-4.5); HEMATOCRIT 33.2 % (32.4-45.2); HEMOGLOBIN 11.7 GM/dL (10.7-15.3); LYMPH % 27.1 % (8-40); MCH 31.3 pg (25.7-33.7); MCHC 35.2 g/dl (32.0-36.0); MEAN PLT VOLUME 8.6 fl (7.5-11.1); MONO % 7.5 % (3.8-10.2); NEUT % 63.7 % (42.8-82.8); PLATELET COUNT 238 K/MM3 (134-434); RBC 3.74 M/mm3 (3.60-5.2); RDW 13.5 % (11.6-15.6); WHITE BLOOD COUNT 3.3 K/mm3 (4.0-10.0)
[2018-06-11] MEDS: SODIUM CHLORIDE 1,000 ML IV SCH (10:50)
[2018-06-11 11:08] LABS: INR 0.98 (0.83-1.09); PROTHROMBIN TIME (PATIENT) 11.6 SEC (9.7-13.0)
[2018-06-11 11:10] LABS: ALBUMIN 4.1 g/dl (3.4-5.0); ALK PHOS 79 U/L (45-117); ANION GAP 11 MMOL/L (8-16); BILIRUBIN,TOTAL 0.6 mg/dL (0.2-1); BLOOD UREA NITROGEN 12 mg/dL (7-18); CALCIUM 9.3 mg/dL (8.5-10.1); CHLORIDE 105 mmol/L (98-107); CHOLESTEROL 241 mg/dL (50-200); CO2 27 mmol/L (21-32); CREATININE 0.7 mg/dL (0.55-1.3); GLUCOSE,RANDOM 90 mg/dL (74-106); HDL CHOLESTEROL 95 mg/dL (40-60); POTASSIUM 3.6 mmol/L (3.5-5.1); SGOT/AST 24 U/L (15-37); SGPT/ALT 33 U/L (13-61); SODIUM 143 mmol/L (136-145); TOT PROT 6.8 g/dl (6.4-8.2); TRIGLYCERIDES 40 mg/dL (0-150)
--- NOTE | 2018-06-11 14:42 | EKG ---
Test Reason : Blood Pressure : / mmHG Vent. Rate : 052 BPM Atrial Rate : 052 BPM P-R Int : 170 ms QRS Dur : 096 ms QT Int : 488 ms P-R-T Axes : 025 072 054 degrees QTc Int : 453 ms SINUS BRADYCARDIA SEPTAL INFARCT (CITED ON OR BEFORE 18-FEB-2009) ABNORMAL ECG WHEN COMPARED WITH ECG OF 09-NOV-2017 00:02, NONSPECIFIC T WAVE ABNORMALITY NO LONGER EVIDENT IN INFERIOR LEADS NONSPECIFIC T WAVE ABNORMALITY NO LONGER EVIDENT IN LATERAL LEADS Confirmed by ANABEL MUHAMMAD, TERA ([id number]) on 06/11/2018 2:42:06 PM Referred By: Confirmed By:TERA LITTLE MD
[2018-06-11] MEDS ORDERED: ACETAMINOPHEN 325 MG TABLET (FP) ONE (15:47)
[2018-06-11] MEDS ORDERED: ACETAMINOPHEN 325 MG TABLET (FP) PO ONE (15:57)
[2018-06-11 17:49] LABS: URINE APPEARANCE CLEAR; URINE BILIRUBIN NEGATIVE (<2.0 mg/dL); URINE COLOR STRAW; URINE GLUCOSE (UA) NEGATIVE (NEGATIVE); URINE KETONE 1+ (NEGATIVE); URINE LEUK ESTERASE NEGATIVE (NEGATIVE); URINE NITRITE NEGATIVE (NEGATIVE); URINE PROTEIN NEGATIVE (NEGATIVE); URINE UROBILINOGEN NEGATIVE mg/dL (0.2-1.0)
--- NOTE | 2018-06-11 18:59 | HP ---
Admitting History and Physical - Primary Care Physician PCP: Emili Srinivasan - Admission History of Present Illness: -52 year old female, with a significant past medical history of asthma (uses albuterol, Advair, and montelukast), SLE (not on steroids), HTN, HLD, migraines and diabetes (taking glipizide) , anxiety who presents to the emergency department with left sided arm and leg tingling and weakness since yesterday. She states she was washing dishes yesterday when she developed a painful tingling to her left fingers and arm which gradually radiated to her left lower extremity. She states she woke up and went to work this morning, however, states the tingling became more painful and her left extremities became weak. She states she felt like she could no walk which prompted her ED visit. She reports the pain feels like a constant, migrating pain which she describes as a shooting pain. She also reports a tightness to the left side of her face. She states she has experienced this once in the past, was seen in the ED where she was found to have low magnesium and low potassium requiring a short hospital stay. She denies taking any medications for her symptoms. She denies any other complaints at this time, however, states she is feeling anxious. Denies trauma or sick contacts. 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 No: CVA Cardiovascular: Yes: HTN. No: AFIB, [place] Gastrointestinal: Yes: Constipation. No: GI Bleed Renal/: Yes: UTI, Hematuria Musculoskeletal: Yes: Chronic low back pain Rheumatology: Yes: Lupus (W/U AT [facility]) - Past Surgical History Past Surgical History: Yes: Hysterectomy - Smoking History Smoking history: Never smoked Have you smoked in the past 12 months: No Aproximately how many cigarettes per day: 0 - Alcohol/Substance Use Hx Alcohol Use: No - Social History ADL: Independent Occupation: Unemployed History of Recent Travel: No Home Medications - Allergies Allergies/Adverse Reactions: Allergies Allergy/AdvReac Type Severity Reaction Status Date / Time ibuprofen [From Motrin] Allergy Mild Rash Verified 11/09/17 00:13 lactose Allergy Mild Nausea Verified 11/09/17 00:13 morphine Allergy Mild Rash Verified 11/09/17 00:13 theophylline anhydrous Allergy Mild Rash Verified 11/09/17 00:13 [From Brad-Dur] hydralazine AdvReac Mild Itching Verified 11/09/17 00:13 - Home Medications Home Medications: Ambulatory Orders Enalapril Maleate [Vasotec -] 20 mg PO DAILY 06/17/15 Montelukast Na [Singulair -] 10 mg PO HS 06/17/15 Hydrochlorothiazide [Hctz -] 50 mg PO DAILY 03/08/16 Loratadine [Claritin] 10 mg PO DAILY 06/26/17 Atenolol [Tenormin -] 25 mg PO DAILY 11/09/17 Simvastatin [Zocor -] 40 mg PO DAILY 11/09/17 Glipizide [Glipizide ER] 10 mg PO DAILY 06/11/18 Family Disease History - Family Disease History Family Disease History: CA: Father (LUNG), Mother Physical Examination Vital Signs: Vital Signs Temperature 98.2 F 06/11/18 09:30 Pulse Rate 76 06/11/18 10:30 Respiratory Rate 18 06/11/18 10:30 Blood Pressure 113/59 L 06/11/18 10:30 O2 Sat by Pulse Oximetry (%) 100 06/11/18 10:30 Constitutional: Yes: No Distress HENT: Yes: Atraumatic Neck: Yes: Supple Cardiovascular: Yes: Regular Rate and Rhythm Respiratory: Yes: CTA Bilaterally Gastrointestinal: Yes: Normal Bowel Sounds Extremities: Yes: WNL Edema: No Peripheral Pulses WNL: Yes Neurological: Yes: Alert, Oriented ...Motor Strength: WNL Labs: CBC, BMP 06/11/18 10:32 06/11/18 10:32 Imaging - Results Cat Scan: Report Reviewed Problem List - Problems (1) Paresthesia Assessment/Plan: neuro eval mri pt eval Code(s): R20.2 - PARESTHESIA OF SKIN (2) HTN (hypertension) Assessment/Plan: continue home meds Code(s): I10 - ESSENTIAL (PRIMARY) HYPERTENSION (3) SLE (systemic lupus erythematosus) Code(s): M32.9 - SYSTEMIC LUPUS ERYTHEMATOSUS, UNSPECIFIED Assessment/Plan Laboratory Tests 06/11/18 06/11/18 06/11/18 10:30 10:32 10:32 WBC 3.3 L RBC 3.74 Hgb 11.7 Hct 33.2 MCV 89.0 MCH 31.3 MCHC 35.2 RDW 13.5 Plt Count 238 MPV 8.6 D Absolute Neuts (auto) 2.1 Neutrophils % 63.7 D Lymphocytes % 27.1 D Monocytes % 7.5 Eosinophils % 0.8 Basophils % 0.9 Nucleated RBC % 0 PT with INR 11.60 INR 0.98 Sodium Potassium Chloride Carbon Dioxide Anion Gap BUN Creatinine Creat Clearance w eGFR POC Glucometer Random Glucose Calcium Total Bilirubin AST ALT Alkaline Phosphatase Creatine Kinase Troponin I Total Protein Albumin Triglycerides Cholesterol Total LDL Cholesterol HDL Cholesterol Urine Color Urine Appearance Urine pH Ur Specific [place] Urine Protein Urine Glucose (UA) Urine Ketones Urine Blood Urine Nitrite Urine Bilirubin Urine Urobilinogen Ur Leukocyte Esterase Blood Type O POSITIVE Antibody Screen Negative 06/11/18 06/11/18 06/11/18 10:32 10:32 17:30 WBC RBC Hgb Hct MCV MCH MCHC RDW Plt Count MPV Absolute Neuts (auto) Neutrophils % Lymphocytes % Monocytes % Eosinophils % Basophils % Nucleated RBC % PT with INR INR Sodium 143 Potassium 3.6 Chloride 105 Carbon Dioxide 27 Anion Gap 11 BUN 12 Creatinine 0.7 Creat Clearance w eGFR > 60 POC Glucometer Random Glucose 90 Calcium 9.3 Total Bilirubin 0.6 AST 24 ALT 33 Alkaline Phosphatase 79 Creatine Kinase 95 Troponin I < 0.02 Total Protein 6.8 Albumin 4.1 Triglycerides 40 Cholesterol 241 H Total LDL Cholesterol 136 H HDL Cholesterol 95 H Urine Color Straw Urine Appearance Clear Urine pH 5.0 Ur Specific [place] 1.011 Urine Protein Negative Urine Glucose (UA) Negative Urine Ketones 1+ H Urine Blood Negative Urine Nitrite Negative Urine Bilirubin Negative Urine Urobilinogen Negative Ur Leukocyte Esterase Negative Blood Type Antibody Screen 06/11/18 18:19 WBC RBC Hgb Hct MCV MCH MCHC RDW Plt Count MPV Absolute Neuts (auto) Neutrophils % Lymphocytes % Monocytes % Eosinophils % Basophils % Nucleated RBC % PT with INR INR Sodium Potassium Chloride Carbon Dioxide Anion Gap BUN Creatinine Creat Clearance w eGFR POC Glucometer 57.02854 Random Glucose Calcium Total Bilirubin AST ALT Alkaline Phosphatase Creatine Kinase Troponin I Total Protein Albumin Triglycerides Cholesterol Total LDL Cholesterol HDL Cholesterol Urine Color Urine Appearance Urine pH Ur Specific [place] Urine Protein Urine Glucose (UA) Urine Ketones Urine Blood Urine Nitrite Urine Bilirubin Urine Urobilinogen Ur Leukocyte Esterase Blood Type Antibody Screen Active Medications Generic Name Dose Route Start Last Admin Trade Name Freq PRN Reason Stop Dose Admin Sodium Chloride 1,000 mls @ 42 mls/hr 06/11/18 10:30 06/11/18 10:50 Normal Saline - IV 42 mls/hr ASDIR BELKIS Administration Active Medications Generic Name Dose Route Start Last Admin Trade Name Freq PRN Reason Stop Dose Admin Acetaminophen 650 mg 06/11/18 19:48 Tylenol - PO QID PRN PAIN Atenolol 25 mg 06/12/18 10:00 06/12/18 10:49 Tenormin - PO Not Given DAILY [facility] Atorvastatin Calcium 20 mg 06/12/18 22:00 Lipitor - PO HS [facility] Enalapril Maleate 20 mg 06/12/18 10:00 06/12/18 10:49 Vasotec - PO Not Given DAILY [facility] Glipizide 10 mg 06/12/18 07:00 06/12/18 08:11 Glucotrol Xl - PO Not Given DAILY@0700 [facility] Hydrochlorothiazide 50 mg 06/12/18 10:00 06/12/18 10:48 Hctz - PO Not Given DAILY [facility] Sodium Chloride 1,000 mls @ 42 mls/hr 06/11/18 10:30 06/12/18 11:10 Normal Saline - IV 42 mls/hr ASDIR BELKIS Administration Montelukast Sodium 10 mg 06/11/18 22:00 06/11/18 23:44 Singulair - PO 10 mg HS BELKIS Administration
--- NOTE | 2018-06-11 19:31 | CON.NEURO ---
Consult Consult Specialty:: NEUROLOGY-JONATHON MUHAMMAD - History of Present Illness Chief Complaint: left arm/leg numbness History of Present Illness: 52 year old female, with a significant past medical history of asthma (uses albuterol, Advair, and montelukast), SLE (not on steroids), HTN, HLD, migraines and diabetes (taking glipizide) , anxiety who presents to the emergency department with left sided arm and leg tingling and weakness since yesterday. She states she was washing dishes yesterday when she developed a painful tingling to her left fingers and arm which gradually radiated to her left lower extremity. She states she woke up and went to work this morning, however, states the tingling became more painful and her left extremities became weak. She states she felt like she could no walk which prompted her ED visit. She reports the pain feels like a constant, migrating pain which she describes as a shooting pain. She also reports a tightness to the left side of her face. She states she has experienced this once in the past, was seen in the ED where she was found to have low magnesium and low potassium requiring a short hospital stay. She denies taking any medications for her symptoms. She denies any other complaints at this time, however, states she is feeling anxious. Denies trauma or sick contacts. Pt reports x 2 days she has had 1-numbness and paresthesias in left leg more than arm(not in face) 2-pain in left leg in L5/s1 distribution. 3- allodynia to touch left leg and inability to ambulate due to pain. Pain is radicular, shooting. 4- mild vertex DC since this morning. 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 No: CVA Cardio/Vascular: Yes: HTN. No: AFIB, [place] Gastrointestinal: Yes: Constipation. No: GI Bleed Renal/: Yes: UTI, Hematuria Musculoskeletal: Yes: Chronic low back pain Rheumatology: Yes: Lupus (W/U AT [facility]) - Past Surgical History Past Surgical History: Yes: Hysterectomy - Alcohol/Substance Use Hx Alcohol Use: No - Smoking History Smoking history: Never smoked Have you smoked in the past 12 months: No Aproximately how many cigarettes per day: 0 - Social History Usual Living Arrangement: With Spouse ADL: Independent Occupation: Unemployed History of Recent Travel: No Home Medications - Allergies Allergies/Adverse Reactions: Allergies Allergy/AdvReac Type Severity Reaction Status Date / Time ibuprofen [From Motrin] Allergy Mild Rash Verified 11/09/17 00:13 lactose Allergy Mild Nausea Verified 11/09/17 00:13 morphine Allergy Mild Rash Verified 11/09/17 00:13 theophylline anhydrous Allergy Mild Rash Verified 11/09/17 00:13 [From Brad-Dur] hydralazine AdvReac Mild Itching Verified 11/09/17 00:13 - Home Medications Home Medications: Ambulatory Orders Enalapril Maleate [Vasotec -] 20 mg PO DAILY 06/17/15 Montelukast Na [Singulair -] 10 mg PO HS 06/17/15 Hydrochlorothiazide [Hctz -] 50 mg PO DAILY 03/08/16 Loratadine [Claritin] 10 mg PO DAILY 06/26/17 Atenolol [Tenormin -] 25 mg PO DAILY 11/09/17 Simvastatin [Zocor -] 40 mg PO DAILY 11/09/17 Glipizide [Glipizide ER] 10 mg PO DAILY 06/11/18 Family Disease History - Family Disease History Family Disease History: CA: Father (LUNG), Mother Physical Exam-Neuro Vital Signs: Vital Signs Temperature 98.2 F 06/11/18 09:30 Pulse Rate 76 06/11/18 10:30 Respiratory Rate 18 06/11/18 10:30 Blood Pressure 113/59 L 06/11/18 10:30 O2 Sat by Pulse Oximetry (%) 100 06/11/18 10:30 Labs: CBC, BMP 06/11/18 10:32 06/11/18 10:32 INR, PTT INR 0.98 (0.83-1.09) 06/11/18 10:32 - Neuro Exam Mini Mental Exam: Intact DTR's: 1+ Left Achilles, 1+ Right Achilles (Left knee jerk is 1+ and right is 2+ ), 2+ Left Bicep, 2+ Right Bicep, 2+ Left Tricep, 2+ Right Tricep, 2+ Left Brachioradialis, 2+ Right Brachioradialis Babinski: Absent Response to light touch: Abnormal (Diminished touch/pin left arm/leg but severe allodynia left leg more than arm) Response to temperature: Abnormal (Unable to test) Response to vibration: Abnormal (Unable to test) Motor Strength: 5/5: Left Arm, Right Arm, Left Leg, Right Leg (Left arm/leg pain makes it difficult to examine) Gait: Deferred (Not able to stand. + SLR left side at 10 degrees) Imaging - Results Cat Scan: Report Reviewed (No acute abn.detected) Assessment/Plan Pt. with SLE?? seronegative , now with left heminumbness, allodynia, left L5/S1 radicular pain and diminished left leg reflexes, + straight leg test on left. DDX includes right thalamic ischemic event, left lumbar radiculopathy(unlikely mechanical). Suggest MRI brain and L/S spine Rheumatologic parameters- RF, GRUPO, ESR, CRP, Anti DS DNA Tylenol or Tramadol prn for pain. 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 Thank you, Helio Ash MD
[2018-06-11] MEDS ORDERED: LORazepam 0.5 MG TABLET ONE (21:14)
[2018-06-11] MEDS ORDERED: LORazepam 0.5 MG TABLET PO ONE (23:00)
[2018-06-11] MEDS ORDERED: MONTELUKAST NA 10 MG TABLET ONE (23:40)
[2018-06-11] MEDS: MONTELUKAST NA 10 MG TABLET PO SCH (23:44)
[2018-06-12] MEDS ORDERED: glipiZIDE-XL 10 MG TAB.ER.24 (FP) PO SCH (07:00)
[2018-06-12] MEDS: HYDROCHLOROTHIAZIDE 25 MG TABLET (FP) PO SCH (10:48)
[2018-06-12] MEDS: ENALAPRIL MALEATE 10 MG TABLET (FP) PO SCH (10:49)
[2018-06-12] MEDS: ATENOLOL 25 MG TABLET (FP) PO SCH (10:49)
[2018-06-12] MEDS: SODIUM CHLORIDE 1,000 ML IV SCH (11:10)
[2018-06-12] MEDS ORDERED: LORazepam 2 MG/ML SDV VIAL IVPUSH ONE (13:00)
[2018-06-12] MEDS ORDERED: LORazepam 2 MG/ML SDV VIAL ONE (13:22)
--- NOTE | 2018-06-12 18:39 | PN ---
Progress Note, Physician History of Present Illness: stable - Current Medication List Current Medications: Active Medications Acetaminophen (Tylenol -) 650 mg PO QID PRN PRN Reason: PAIN Atenolol (Tenormin -) 25 mg PO DAILY [facility] Last Admin: 06/12/18 10:49 Dose: Not Given Atorvastatin Calcium (Lipitor -) 20 mg PO [facility] Enalapril Maleate (Vasotec -) 20 mg PO DAILY [facility] Last Admin: 06/12/18 10:49 Dose: Not Given Glipizide (Glucotrol Xl -) 10 mg PO DAILY@0700 [facility] Last Admin: 06/12/18 08:11 Dose: Not Given Hydrochlorothiazide (Hctz -) 50 mg PO DAILY [facility] Last Admin: 06/12/18 10:48 Dose: Not Given Sodium Chloride (Normal Saline -) 1,000 mls @ 42 mls/hr IV ASDIR [facility] Last Admin: 06/12/18 11:10 Dose: 42 mls/hr Montelukast Sodium (Singulair -) 10 mg PO [facility] Last Admin: 06/11/18 23:44 Dose: 10 mg - Objective Vital Signs: Vital Signs Temperature 98.2 F 06/12/18 17:07 Pulse Rate 52 L 06/12/18 17:07 Respiratory Rate 18 06/12/18 17:07 Blood Pressure 167/89 06/12/18 17:07 O2 Sat by Pulse Oximetry (%) 94 L 06/12/18 17:27 Constitutional: Yes: No Distress HENT: Yes: Atraumatic Neck: Yes: Supple Cardiovascular: Yes: Regular Rate and Rhythm Respiratory: Yes: CTA Bilaterally Gastrointestinal: Yes: Normal Bowel Sounds Extremities: Yes: WNL Edema: No Neurological: Yes: Alert, Oriented Labs: CBC, BMP 06/11/18 10:32 06/11/18 10:32 INR, PTT INR 0.98 (0.83-1.09) 06/11/18 10:32 Problem List - Problems (1) Paresthesia Assessment/Plan: mri...done pt eval need neuro input dc planning Code(s): R20.2 - PARESTHESIA OF SKIN (2) HTN (hypertension) Assessment/Plan: continue home meds Code(s): I10 - ESSENTIAL (PRIMARY) HYPERTENSION (3) SLE (systemic lupus erythematosus) Code(s): M32.9 - SYSTEMIC LUPUS ERYTHEMATOSUS, UNSPECIFIED
[2018-06-12] MEDS: ATORVASTATIN CA 20 MG TABLET (FP) PO SCH (22:01)
[2018-06-12] MEDS: ACETAMINOPHEN 325 MG TABLET (FP) PO PRN (22:01)
[2018-06-12] MEDS: MONTELUKAST NA 10 MG TABLET PO SCH (22:02)
--- NOTE | 2018-06-12 22:13 | PN ---
Progress Note (short form) - Note Progress Note: Pt. is reporting left arm numbness but less intense. MRI brain without acute changes. Her back pain is improved too, MRi l/s spine not done as yet. Suggest: Await rheumatology consult. Given pain is improved and no acute ischemic chanhe on neuroimaging no further neurologic intervention for now. I will see her in the office(pt. will be called by my office on Saturday) on Saturday and obtain Cspine imaging. Thank you, Helio Ash MD
[2018-06-13] MEDS ORDERED: PT OWN MED DRAWER 7, Y5N ONE (05:28)
[2018-06-13] MEDS: glipiZIDE-XL 5 MG TAB.ER.24 PO SCH (06:57)
[2018-06-13] MEDS: HYDROCHLOROTHIAZIDE 25 MG TABLET (FP) PO SCH (09:59)
[2018-06-13] MEDS: ENALAPRIL MALEATE 10 MG TABLET (FP) PO SCH (09:59)
[2018-06-13] MEDS: ATENOLOL 25 MG TABLET (FP) PO SCH (09:59)
[2018-06-13] MEDS: ACETAMINOPHEN 325 MG TABLET (FP) PO PRN (09:59)
--- NOTE | 2018-06-13 17:25 | PN ---
Progress Note, Physician History of Present Illness: stable still c/o pain left arm and leg - Current Medication List Current Medications: Active Medications Acetaminophen (Tylenol -) 650 mg PO QID PRN PRN Reason: PAIN Last Admin: 06/13/18 09:59 Dose: 650 mg Atenolol (Tenormin -) 25 mg PO DAILY [facility] Last Admin: 06/13/18 09:59 Dose: 25 mg Atorvastatin Calcium (Lipitor -) 20 mg PO [facility] Last Admin: 06/12/18 22:01 Dose: 20 mg Enalapril Maleate (Vasotec -) 20 mg PO DAILY [facility] Last Admin: 06/13/18 09:59 Dose: 20 mg Glipizide (Glucotrol Xl -) 10 mg PO DAILY@0700 [facility] Last Admin: 06/13/18 06:57 Dose: 10 mg Hydrochlorothiazide (Hctz -) 50 mg PO DAILY [facility] Last Admin: 06/13/18 09:59 Dose: 50 mg Lorazepam (Ativan Injection -) 1 mg IVPUSH ONCE ONE Stop: 06/13/18 09:31 Montelukast Sodium (Singulair -) 10 mg PO [facility] Last Admin: 06/12/18 22:02 Dose: 10 mg - Objective Vital Signs: Vital Signs Temperature 97.3 F L 06/13/18 15:22 Pulse Rate 53 L 06/13/18 15:22 Respiratory Rate 18 06/13/18 15:22 Blood Pressure 125/15 L 06/13/18 15:22 O2 Sat by Pulse Oximetry (%) 96 06/13/18 08:00 Constitutional: Yes: No Distress HENT: Yes: Atraumatic Neck: Yes: Supple Cardiovascular: Yes: Regular Rate and Rhythm Respiratory: Yes: CTA Bilaterally Gastrointestinal: Yes: Normal Bowel Sounds Extremities: Yes: WNL Edema: No Peripheral Pulses WNL: Yes Neurological: Yes: Alert, Oriented Labs: CBC, BMP 06/11/18 10:32 06/11/18 10:32 INR, PTT INR 0.98 (0.83-1.09) 06/11/18 10:32 Problem List - Problems (1) Paresthesia Assessment/Plan: mri...pending for lumbar spine pt eval Code(s): R20.2 - PARESTHESIA OF SKIN (2) HTN (hypertension) Assessment/Plan: continue home meds Code(s): I10 - ESSENTIAL (PRIMARY) HYPERTENSION (3) SLE (systemic lupus erythematosus) Assessment/Plan: awaiting rheumatology consult Code(s): M32.9 - SYSTEMIC LUPUS ERYTHEMATOSUS, UNSPECIFIED
[2018-06-13] MEDS: ATORVASTATIN CA 20 MG TABLET (FP) PO SCH (22:29)
[2018-06-13] MEDS: MONTELUKAST NA 10 MG TABLET PO SCH (22:29)
[2018-06-14] MEDS: glipiZIDE-XL 5 MG TAB.ER.24 PO SCH (06:40)
[2018-06-14] MEDS: ACETAMINOPHEN 325 MG TABLET (FP) PO PRN ×2 (06:41→21:55)
[2018-06-14] MEDS: HYDROCHLOROTHIAZIDE 25 MG TABLET (FP) PO SCH (09:38)
[2018-06-14] MEDS: ATENOLOL 25 MG TABLET (FP) PO SCH (09:38)
[2018-06-14] MEDS: ENALAPRIL MALEATE 10 MG TABLET (FP) PO SCH (09:38)
--- NOTE | 2018-06-14 13:02 | PN ---
Progress Note, Physician History of Present Illness: awaiting mri - Current Medication List Current Medications: Active Medications Acetaminophen (Tylenol -) 650 mg PO QID PRN PRN Reason: PAIN Last Admin: 06/14/18 06:41 Dose: 650 mg Atenolol (Tenormin -) 25 mg PO DAILY [facility] Last Admin: 06/14/18 09:38 Dose: 25 mg Atorvastatin Calcium (Lipitor -) 20 mg PO [facility] Last Admin: 06/13/18 22:29 Dose: 20 mg Enalapril Maleate (Vasotec -) 20 mg PO DAILY [facility] Last Admin: 06/14/18 09:38 Dose: 20 mg Glipizide (Glucotrol Xl -) 10 mg PO DAILY@0700 [facility] Last Admin: 06/14/18 06:40 Dose: 10 mg Hydrochlorothiazide (Hctz -) 50 mg PO DAILY [facility] Last Admin: 06/14/18 09:38 Dose: 50 mg Lorazepam (Ativan Injection -) 1 mg IVPUSH ONCE ONE Stop: 06/13/18 09:31 Montelukast Sodium (Singulair -) 10 mg PO [facility] Last Admin: 06/13/18 22:29 Dose: 10 mg - Objective Vital Signs: Vital Signs Temperature 98 F 06/14/18 09:37 Pulse Rate 56 L 06/14/18 09:37 Respiratory Rate 18 06/14/18 09:37 Blood Pressure 120/54 L 06/14/18 09:37 O2 Sat by Pulse Oximetry (%) 98 06/14/18 08:00 Constitutional: Yes: No Distress HENT: Yes: Atraumatic Neck: Yes: Supple Cardiovascular: Yes: Regular Rate and Rhythm Respiratory: Yes: CTA Bilaterally Gastrointestinal: Yes: Normal Bowel Sounds Extremities: Yes: WNL Edema: No Peripheral Pulses WNL: Yes Neurological: Yes: Alert, Oriented Labs: CBC, BMP 06/11/18 10:32 06/11/18 10:32 INR, PTT INR 0.98 (0.83-1.09) 06/11/18 10:32 Problem List - Problems (1) Paresthesia Assessment/Plan: mri...pending for lumbar spine pt eval Code(s): R20.2 - PARESTHESIA OF SKIN (2) HTN (hypertension) Assessment/Plan: continue home meds Code(s): I10 - ESSENTIAL (PRIMARY) HYPERTENSION (3) SLE (systemic lupus erythematosus) Assessment/Plan: awaiting rheumatology consult Code(s): M32.9 - SYSTEMIC LUPUS ERYTHEMATOSUS, UNSPECIFIED
[2018-06-14] MEDS ORDERED: LORazepam 2 MG/ML SDV VIAL IVPUSH ONE (17:15)
--- NOTE | 2018-06-14 21:23 | CONSULT ---
Consult Consult Specialty:: Rheumatology - History of Present Illness History of Present Illness: 52 year old female, with past medical history of HTN, HLD, migraine headache, diabetes, anxiety,asthma and she was told she could have lupus. She was admitted with a 1 day history of numbness, paresthesias and weakness in her left side. HPI The patient reports that 1 year ago she was found to have a positive GRUPO and was other frederick asymptomatic. On November 2017, while of [place], she developed a skin rash in face, back hands and legs and oral ulcers. She saw a teacher assistant who apparently told her she had a fungus. She claims she then could not see with her left eye and had blurry vision in the right that lasted one month and resolved spontaneously. She did not seek medical attention at that time and when she returned home she was seen by an business services associate who told her she has dry eyes, she needs glasses and was otherwise normal. She reports arthralgia in wrists, knees and ankles. The pain is worse with activity and she has 30 minutes morning stiffness. She reports occasional shortness of breath and she denies dry mouth, Raynaud's phenomenon or fever. In this admission work-up revealed CT scan of the head with ni intracranial pathology and no change as compared to a 09/01/13 study. Brain MRI with minimal volume loss, few very small subcortical hyperintensity foci non specific, likely minimal chronic microvascular ischemic changes, Laboratory work-up: CBC with WBC of 3.3, Hgb 11.7, HCT 33.2, and platelets 238. ESR 8. SMA-7 and LFT normal. Urinalysis with no blood and no protein. Anti- DNAds negative, GRUPO and CH50 pending. 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 No: CVA Cardio/Vascular: Yes: HTN. No: AFIB, [place] Gastrointestinal: Yes: Constipation. No: GI Bleed Renal/: Yes: UTI, Hematuria Musculoskeletal: Yes: Chronic low back pain Rheumatology: Yes: Lupus (W/U AT [facility]) - Past Surgical History Past Surgical History: Yes: Hysterectomy - Alcohol/Substance Use Hx Alcohol Use: No - Smoking History Smoking history: Never smoked Have you smoked in the past 12 months: No Aproximately how many cigarettes per day: 0 - Social History Usual Living Arrangement: With Spouse ADL: Independent Occupation: Unemployed History of Recent Travel: No Home Medications - Allergies Allergies/Adverse Reactions: Allergies Allergy/AdvReac Type Severity Reaction Status Date / Time ibuprofen [From Motrin] Allergy Mild Rash Verified 11/09/17 00:13 lactose Allergy Mild Nausea Verified 11/09/17 00:13 morphine Allergy Mild Rash Verified 11/09/17 00:13 theophylline anhydrous Allergy Mild Rash Verified 11/09/17 00:13 [From Brad-Dur] hydralazine AdvReac Mild Itching Verified 11/09/17 00:13 - Home Medications Home Medications: Ambulatory Orders Enalapril Maleate [Vasotec -] 20 mg PO DAILY 06/17/15 Montelukast Na [Singulair -] 10 mg PO HS 06/17/15 Hydrochlorothiazide [Hctz -] 50 mg PO DAILY 03/08/16 Loratadine [Claritin] 10 mg PO DAILY 06/26/17 Atenolol [Tenormin -] 25 mg PO DAILY 11/09/17 Simvastatin [Zocor -] 40 mg PO DAILY 11/09/17 Glipizide [Glipizide ER] 10 mg PO DAILY 06/11/18 Family Disease History - Family Disease History Family Disease History: CA: Father (LUNG), Mother Review of Systems - Review of Systems Constitutional: reports: Malaise Eyes: reports: Other (Dry eyes and episode of decreased vision (See HPI).) HENT: reports: No Symptoms Neck: reports: No Symptoms Cardiovascular: reports: No Symptoms Respiratory: reports: SOB Gastrointestinal: reports: No Symptoms Musculoskeletal: reports: Other (See HPI) Physical Exam Vital Signs: Vital Signs Temperature 98.3 F 06/14/18 18:07 Pulse Rate 54 L 06/14/18 18:07 Respiratory Rate 20 06/14/18 18:07 Blood Pressure 121/81 06/14/18 18:07 O2 Sat by Pulse Oximetry (%) 98 06/14/18 08:00 Constitutional: Yes: No Distress Eyes: Yes: WNL HENT: Yes: WNL Neck: Yes: WNL Cardiovascular: Yes: WNL Respiratory: Yes: WNL Gastrointestinal: Yes: WNL Musculoskeletal: Yes: Other (Mild tenderness in the right wrist and right 3rd and left 3rd and 4th MCPs. No joint effusions.) Labs: CBC, BMP 06/11/18 10:32 06/11/18 10:32 Laboratory Tests 06/11/18 06/11/18 06/11/18 10:32 10:32 10:32 ESR PT with INR 11.60 INR 0.98 Calcium 9.3 Total Bilirubin 0.6 AST 24 ALT 33 Alkaline Phosphatase 79 Creatine Kinase 95 Total Protein 6.8 Albumin 4.1 Urine Appearance Urine pH Ur Specific [place] Urine Protein Urine Glucose (UA) Urine Ketones Urine Blood Urine Nitrite Urine Bilirubin Urine Urobilinogen Ur Leukocyte Esterase Double Strand DNA Ab 06/11/18 06/13/18 06/13/18 17:30 05:30 05:30 ESR 8 PT with INR INR Calcium Total Bilirubin AST ALT Alkaline Phosphatase Creatine Kinase Total Protein Albumin Urine Appearance Clear Urine pH 5.0 Ur Specific [place] 1.011 Urine Protein Negative Urine Glucose (UA) Negative Urine Ketones 1+ H Urine Blood Negative Urine Nitrite Negative Urine Bilirubin Negative Urine Urobilinogen Negative Ur Leukocyte Esterase Negative Double Strand DNA Ab <1 Problem List - Problems (1) SLE (systemic lupus erythematosus) Assessment/Plan: History of GRUPO positive and dry eyes. Other non specific symptoms (such as amaurosis in the left eye for 1 month with subsequent normal ophtalmology examination). Mild arthralgia with no joint effusion. Anti-DNA ds negative. GRUPO and CH50 pending. Even though it is possible that the patient has lupus or Sjogren's sydrome, there is no evidence of disease activity and it is unlikely to be related to the clinical changes on admission. She does not required treatment at this time. I will request anti-SSA, anti-SSB and anti-MIKE on Saturday. Work-up can be completed as outpatient. Code(s): M32.9 - SYSTEMIC LUPUS ERYTHEMATOSUS, UNSPECIFIED
[2018-06-14] MEDS: MONTELUKAST NA 10 MG TABLET PO SCH (21:55)
[2018-06-14] MEDS: ATORVASTATIN CA 20 MG TABLET (FP) PO SCH (21:55)
[2018-06-15] MEDS: glipiZIDE-XL 5 MG TAB.ER.24 PO SCH (06:31)
[2018-06-15 07:50] LABS: BASO % 0.8 % (0-2.0); EOS % 2.1 % (0-4.5); HEMATOCRIT 35.6 % (32.4-45.2); HEMOGLOBIN 11.6 GM/dL (10.7-15.3); LYMPH % 33.2 % (8-40); MCH 29.4 pg (25.7-33.7); MCHC 32.6 g/dl (32.0-36.0); MEAN CELL VOLUME 89.9 fl (80-96); MEAN PLT VOLUME 9.4 fl (7.5-11.1); MONO % 10.2 % (3.8-10.2); NEUT % 53.7 % (42.8-82.8); PLATELET COUNT 203 K/MM3 (134-434); RBC 3.96 M/mm3 (3.60-5.2); RDW 13.8 % (11.6-15.6); WHITE BLOOD COUNT 3.8 K/mm3 (4.0-10.0)
[2018-06-15 08:22] LABS: ALBUMIN 3.4 g/dl (3.4-5.0); ALK PHOS 74 U/L (45-117); ANION GAP 7 MMOL/L (8-16); BILIRUBIN,TOTAL 0.5 mg/dL (0.2-1); BLOOD UREA NITROGEN 19 mg/dL (7-18); CALCIUM 8.8 mg/dL (8.5-10.1); CHLORIDE 101 mmol/L (98-107); CO2 32 mmol/L (21-32); CREATININE 0.6 mg/dL (0.55-1.3); GLUCOSE,RANDOM 122 mg/dL (74-106); POTASSIUM 3.6 mmol/L (3.5-5.1); SGOT/AST 14 U/L (15-37); SGPT/ALT 24 U/L (13-61); SODIUM 140 mmol/L (136-145); TOT PROT 6.1 g/dl (6.4-8.2)
[2018-06-15] MEDS: HYDROCHLOROTHIAZIDE 25 MG TABLET (FP) PO SCH (09:05)
[2018-06-15] MEDS: ENALAPRIL MALEATE 10 MG TABLET (FP) PO SCH (09:05)
[2018-06-15] MEDS: ATENOLOL 25 MG TABLET (FP) PO SCH (09:05)
[2018-06-15 14:29] VITALS: BP 128/73; PULSE 58; TEMP 98.1
--- NOTE | 2018-06-15 18:07 | DS ---
Physical Examination Vital Signs: Vital Signs Temperature 98.1 F 06/15/18 14:00 Pulse Rate 58 L 06/15/18 14:00 Respiratory Rate 20 06/15/18 14:00 Blood Pressure 128/73 06/15/18 14:00 O2 Sat by Pulse Oximetry (%) 100 06/15/18 09:00 Labs: CBC, BMP 06/15/18 06:30 06/15/18 06:30 Discharge Summary Reason For Visit: PARESTHESIA Current Active Problems Paresthesia (Acute) SLE (systemic lupus erythematosus) (Acute) Condition: Stable - Instructions Referrals: Erica Ash MD [Staff Physician] - Ferny Cardoza [Primary Care Provider] - Disposition: HOME - Home Medications Comprehensive Discharge Medication List: Ambulatory Orders Enalapril Maleate [Vasotec -] 20 mg PO DAILY 06/17/15 Montelukast Na [Singulair -] 10 mg PO HS 06/17/15 Hydrochlorothiazide [Hctz -] 50 mg PO DAILY 03/08/16 Loratadine [Claritin] 10 mg PO DAILY 06/26/17 Atenolol [Tenormin -] 25 mg PO DAILY 11/09/17 Simvastatin [Zocor -] 40 mg PO DAILY 11/09/17 Glipizide [Glipizide ER] 10 mg PO DAILY 06/11/18 cleared to be dc by neuro as per RN
== END 2018-06-15 18:55 | disposition home or self-care (01) | DRG 346 ==
LOC: JER 09:25 → JERBED 12:00 → J4W 06-12 15:49 → OBSVTOIN 06-14 18:18
PROVIDERS: ADMIT Internal Medicine; ATTEND Internal Medicine
DX: M32.9 Systemic lupus erythematosus, unspecified (principal); R20.2 Paresthesia of skin; I10 Essential (primary) hypertension; E78.5 Hyperlipidemia, unspecified; G43.909 Migraine, unspecified, not intractable, without status migrainosus; Z79.84 Long term (current) use of oral hypoglycemic drugs; F41.9 Anxiety disorder, unspecified
CPT/HCPCS: 36415; 70450-TC; 70551-TC; 72148-TC; 80053; 81003; 82465; 82550; 82962; 83718; 83721; 84478; 84484; 85025; 85610; 85651; 86038; 86162; 86225; 86850; 86900; 86901; 93005; 93010; 97116-GP; 97162-GP; 99285-25; G0378; J0131; J7030

== ENCOUNTER 2019-05-07 17:30 | Emergency (ER) | payer OTHER ==
[2019-05-07 17:55] VITALS: BP 161/95; PULSE 60; TEMP 98.9; BMI 18.8
[2019-05-07] MEDS ORDERED: SODIUM CHLORIDE 0.9% 500 ML INFUS.BAG IV ONE (19:05)
[2019-05-07] MEDS ORDERED: METOCLOPRAMIDE HCL INJECTION 10 MG/2 ML VIAL IVPUSH ONE (19:06)
[2019-05-07] MEDS ORDERED: METOCLOPRAMIDE HCL INJECTION 10 MG/2 ML VIAL ONE (19:22)
--- NOTE | 2019-05-07 19:49 | PDOC ---
History of Present Illness - General Chief Complaint: Respiratory Stated Complaint: HEADACHES Time Seen by Provider: 05/07/19 18:28 History Source: Patient Exam Limitations: No Limitations - History of Present Illness Initial Comments: 05/07/19 19:39 53-year-old with history of asthma, hypertension, SLE, hyperlipidemia, diabetes , migraine headaches presents complaining of throbbing headache for 11 days associated with photosensitivity, nausea, sinus congestion and pressure. Symptoms unrelieved by Sudafed and Flonase. Initially had body aches, dry cough , sore throat which resolved on its own after 2 days. Denies vision changes, neck pain, fever, chills, rash, recent travel, chest pain, shortness of breath, abdominal pain or any other symptoms. ROS: GENERAL/CONSTITUTIONAL: No fever, chills, weakness, dizziness HEAD, EYES, EARS, NOSE AND THROAT: Photosensitivity, No ear pain or discharge, No sore throat CARDIOVASCULAR: No chest pain RESPIRATORY: No shortness of breath or cough GASTROINTESTINAL: nausea, denies vomiting, diarrhea GENITOURINARY: No dysuria MUSCULOSKELETAL: No neck or back pain SKIN: No rash NEUROLOGIC: headache, denies vertigo, loss of consciousness, or loss of sensation PE: GENERAL: well-appearing, NAD HEAD: NCAT, tenderness to palpation over sinus cavities EYES: Pupils equal, round and reactive to light, sclera anicteric, conjunctiva clear ENT: pharynx: no erythema, no exudate, uvula midline NECK: supple CHEST: nontender RESP: clear, no w/r/r CARDIO: rrr, no m/g/r ABD: +BS, soft, nontender, non distended BACK: no midline spinal ttp, no CVAT EXTREMITIES: Normal range of motion, no edema NEUROLOGICAL: Normal speech, normal gait SKIN: Warm, Dry 05/07/19 21:16 Past History - Past Medical History Allergies/Adverse Reactions: Allergies Allergy/AdvReac Type Severity Reaction Status Date / Time ibuprofen [From Motrin] Allergy Mild Rash Verified 05/07/19 17:53 lactose Allergy Mild Nausea Verified 05/07/19 17:53 morphine Allergy Mild Rash Verified 05/07/19 17:53 theophylline anhydrous Allergy Mild Rash Verified 05/07/19 17:53 [From Brad-Dur] hydralazine AdvReac Mild Itching Verified 05/07/19 17:53 Home Medications: Ambulatory Orders Enalapril Maleate [Vasotec -] 20 mg PO DAILY 06/17/15 Montelukast Na [Singulair -] 10 mg PO HS 06/17/15 Hydrochlorothiazide [Hctz -] 50 mg PO DAILY 03/08/16 Loratadine [Claritin] 10 mg PO DAILY 06/26/17 Atenolol [Tenormin -] 25 mg PO DAILY 11/09/17 Simvastatin [Zocor -] 40 mg PO DAILY 11/09/17 Glipizide [Glipizide ER] 10 mg PO DAILY 06/11/18 Anemia: Yes (iron defeciency) Asthma: Yes Cardiac Disorders: Yes (chest pain) COPD: No Diabetes: Yes GI Disorders: Yes (constipated) HTN: Yes Hypercholesterolemia: Yes - Surgical History Abdominal Surgery: Yes Orthopedic Surgery: Yes (b/l knee arthscopy) - Immunization History Immunization Up to Date: No - Psycho Social/Smoking Cessation Hx Smoking Status: No Smoking History: Never smoked Have you smoked in the past 12 months: No Number of Cigarettes Smoked Daily: 0 Hx Alcohol Use: No Drug/Substance Use Hx: No Substance Use Type: None Hx Substance Use Treatment: No *Physical Exam - Vital Signs Last Vital Signs Temp Pulse Resp BP Pulse Ox 98.9 F 60 18 161/95 98 05/07/19 17:53 05/07/19 17:53 05/07/19 17:53 05/07/19 17:53 05/07/19 17:53 Medical Decision Making - Medical Decision Making 05/07/19 21:15 53-year-old female with history of asthma, hypertension, SLE, diabetes and migraines presents complaining of throbbing headache x 11 days with photosensitivity and nausea. Similar to prior migraine headaches except usually symptoms resolve after 5 to 7 days. Patient did not take anything for pain today. Headache resolved after IV fluids, IV Reglan and IV acetaminophen Advised to follow-up with PMD Return precautions provided Discharge - Discharge Information Problems reviewed: Yes Clinical Impression/Diagnosis: Headache Qualifiers: Headache type: unspecified Headache chronicity pattern: chronic headache Intractability: not intractable Qualified Code(s): R51 - Headache Condition: Stable Disposition: HOME - Admission No - Follow up/Referral Referrals: Oyekola,Mobolaji, CRM BUSINESS ANALYST [Primary Care Provider] - - Patient Discharge Instructions Additional Instructions: Follow-up with your doctor within 1 to 2 days Return to ED if persistent headaches, nausea, vomiting, fever, neck pain, rash or any other symptoms - Post Discharge Activity
[2019-05-07] MEDS ORDERED: ACETAMINOPHEN 500 MG TABLET (FP) PO ONE (20:30)
[2019-05-07] MEDS ORDERED: ACETAMINOPHEN INJECTION 100 ML IVPB ONE (20:30)
[2019-05-07] MEDS ORDERED: ACETAMINOPHEN 1000 MG/100 ML VIAL (NON FORMULARY) IVPB ONE (20:34)
== END 2019-05-07 21:31 | disposition home or self-care (01) ==
LOC: JERFT 17:30
PROC: 3E033NZ Introduction of Analgesics, Hypnotics, Sedatives into Peripheral Vein, Percutaneous Approach (ICD-10-PCS; principal; 2019-05-07)
PROC: 3E033GC Introduction of Other Therapeutic Substance into Peripheral Vein, Percutaneous Approach (ICD-10-PCS; 2019-05-07)
DX: R51 Headache (principal); J45.909 Unspecified asthma, uncomplicated; I10 Essential (primary) hypertension; M32.9 Systemic lupus erythematosus, unspecified; Z88.8 Allergy status to other drugs, medicaments and biological substances; Z88.6 Allergy status to analgesic agent
CPT/HCPCS: 82962; 99281-25; J0131

== ENCOUNTER 2019-07-03 12:21 | Emergency (ER) | payer OTHER ==
[2019-07-03 12:45] VITALS: TEMP 98.3; BMI 19.0
--- NOTE | 2019-07-03 14:37 | PDOC ---
History of Present Illness - General Chief Complaint: Injury Stated Complaint: FALL/HEADACHE/VOMITING Time Seen by Provider: 07/03/19 13:26 - History of Present Illness Initial Comments: 07/03/19 14:35 53-year-old female with a past medical history of diabetes and hypertension presents for evaluation of headache nausea and vomiting after falling and hitting her head. She states she was working out at the gym doing sit ups on a workout ball when she lost her balance and fell. This occurred yesterday and since the time of her injury she has been vomiting she also develops chest pain in the emergency room Past History - Past Medical History Allergies/Adverse Reactions: Allergies Allergy/AdvReac Type Severity Reaction Status Date / Time ibuprofen [From Motrin] Allergy Mild Rash Verified 07/03/19 12:41 lactose Allergy Mild Nausea Verified 07/03/19 12:41 morphine Allergy Mild Rash Verified 07/03/19 12:41 theophylline anhydrous Allergy Mild Rash Verified 07/03/19 12:41 [From [facility]-Dur] hydralazine AdvReac Mild Itching Verified 07/03/19 12:41 Home Medications: Ambulatory Orders Enalapril Maleate [Vasotec -] 20 mg PO DAILY 06/17/15 Montelukast Na [Singulair -] 10 mg PO HS 06/17/15 Hydrochlorothiazide [Hctz -] 50 mg PO DAILY 03/08/16 Loratadine [Claritin] 10 mg PO DAILY 06/26/17 Atenolol [Tenormin -] 25 mg PO DAILY 11/09/17 Simvastatin [Zocor -] 40 mg PO DAILY 11/09/17 Glipizide [Glipizide ER] 10 mg PO DAILY 06/11/18 Anemia: Yes (iron defeciency) Asthma: Yes Cardiac Disorders: Yes (chest pain) COPD: No Diabetes: Yes GI Disorders: Yes (constipated) HTN: Yes Hypercholesterolemia: Yes - Surgical History Abdominal Surgery: Yes Orthopedic Surgery: Yes (b/l knee arthscopy) - Immunization History Immunization Up to Date: Yes - Psycho Social/Smoking Cessation Hx Smoking Status: No Smoking History: Never smoked Have you smoked in the past 12 months: No Number of Cigarettes Smoked Daily: 0 Information on smoking cessation initiated: No Hx Alcohol Use: No Drug/Substance Use Hx: No Substance Use Type: None Hx Substance Use Treatment: No Review of Systems - Review of Systems Cardiac (ROS): Yes: Chest Pain Neurological: Yes: Headache *Physical Exam - Vital Signs Last Vital Signs Temp Pulse Resp BP Pulse Ox 98.3 F 67 17 104/71 98 07/03/19 12:39 07/03/19 12:39 07/03/19 12:39 07/03/19 12:39 07/03/19 12:39 - Physical Exam 07/03/19 14:36 GENERAL: Well developed, well nourished. Awake and alert. No acute distress. HEENT: Normocephalic, atraumatic. PERRLA, EOMI. No conjunctival pallor. Sclera are non- icteric. Moist mucous membranes. Oropharynx is clear. NECK: Supple. Full ROM. No JVD. Carotid pulses 2+ and symmetric, without bruits. No thyromegaly. No lymphadenopathy. CARDIOVASCULAR: Regular rate and rhythm. No murmurs, rubs, or gallops. Distal pulses are 2+ and symmetric. PULMONARY: No evidence of respiratory distress. Lungs clear to auscultation bilaterally. No wheezing, rales or rhonchi. ABDOMINAL: Soft. Non-tender. Non-distended. No rebound or guarding. No organomegaly. Normoactive bowel sounds. MUSCULOSKELETAL Normal range of motion at all joints. No bony deformities or tenderness. No CVA tenderness. EXTREMITIES: No cyanosis. No clubbing. No edema. No calf tenderness. SKIN: Warm and dry. Normal capillary refill. No rashes. No jaundice. NEUROLOGICAL: Alert, awake, appropriate. Cranial nerves 2-12 intact. No deficits to light touch and temperature in face, upper extremities and lower extremities. No motor deficits in the in face, upper extremities and lower extremities. PSYCHIATRIC: Cooperative. Good eye contact. Appropriate mood and affect. ED Treatment Course - RADIOLOGY Radiology Studies Ordered: Category Date Time Status HEAD CT WITHOUT CONTRAST [CT] Stat CT Scan 07/03/19 14:01 Ordered CHEST PA & LAT [RAD] Stat Radiology 07/03/19 14:35 Ordered Medical Decision Making - Medical Decision Making 07/03/19 14:36 We will transfer patient to the main emergency room further work-up is indicated at this time Discharge - Discharge Information Problems reviewed: Yes Clinical Impression/Diagnosis: Chest pain - Follow up/Referral Referrals: Asamenew,Trent [Primary Care Provider] - - Patient Discharge Instructions - Post Discharge Activity
--- NOTE | 2019-07-03 14:46 | PDOC ---
*Physical Exam - Vital Signs Last Vital Signs Temp Pulse Resp BP Pulse Ox 98.3 F 67 17 104/71 98 07/03/19 12:39 07/03/19 12:39 07/03/19 12:39 07/03/19 12:39 07/03/19 12:39 - Physical Exam 07/03/19 15:27 appears uncomfortable, sitting in wheelchair w/ a towel over her head, states she is too dizzy to walk General Appearance: Yes: Appropriately Dressed, Apparent Distress HEENT: positive: Normal Voice. negative: Scleral Icterus (R), Scleral Icterus ( L) Neck: positive: Supple Respiratory/Chest: positive: Lungs Clear, Normal Breath Sounds. negative: Respiratory Distress Cardiovascular: positive: Regular Rate, S1, S2 Gastrointestinal/Abdominal: positive: Soft. negative: Tender Integumentary: positive: Dry, Warm Neurologic: positive: informatica II-XII NML intact, Fully Oriented, Alert, Normal Mood/ Affect, Motor Strength 5/5 <Deirdre Ramos - Last Filed: 07/03/19 20:52> - Vital Signs Last Vital Signs Temp Pulse Resp BP Pulse Ox 98.3 F 59 L 16 116/81 100 07/03/19 12:39 07/03/19 19:31 07/03/19 19:31 07/03/19 19:31 07/03/19 19:31 <Zheng Smith - Last Filed: 07/07/19 07:27> ED Treatment Course - LABORATORY CBC & Chemistry Diagram: 07/03/19 14:45 07/03/19 14:45 <Deirdre Ramos - Last Filed: 07/03/19 20:52> - LABORATORY CBC & Chemistry Diagram: 07/03/19 14:45 07/03/19 14:45 - ADDITIONAL ORDERS Additional order review: 07/03/19 14:45 RBC 4.01 MCV 90.7 MCHC 33.9 RDW 13.4 MPV 8.9 Neutrophils % 47.8 Lymphocytes % 39.3 Monocytes % 8.9 Eosinophils % 2.6 Basophils % 1.4 - Medications Given in the ED: ED Medications Discontinued Medications Generic Name Dose Route Start Last Admin Trade Name Freq PRN Reason Stop Dose Admin Acetaminophen 1,000 mg 07/03/19 15:45 07/03/19 17:32 Ofirmev Injection - IVPB 07/03/19 15:46 1,000 mg ONCE ONE Administration Sodium Chloride 1,000 mls @ 1,000 mls/hr 07/03/19 15:45 07/03/19 17:31 Normal Saline - IV 07/03/19 16:44 1,000 mls/hr ASDIR STA Administration Ondansetron HCl 4 mg 07/03/19 15:45 07/03/19 17:32 Zofran Injection IVPUSH 07/03/19 15:46 4 mg ONCE ONE Administration <Zheng Smith - Last Filed: 07/07/19 07:27> Medical Decision Making - Medical Decision Making 07/03/19 14:46 Received s.o from AYE Marcus Pt is a 53 yo F, h/o lupus, HTN, DM, here w/ DC, dizziness and n/v after falling off exercise ball last night. States she did hit her head. No LOC, vertigo, visual changes or focal weakness. States since she has been in the ED , she started having vague chest pain which has since resolved. No shortness of breath palpitations, leg pain or swelling. No history of CAD. Patient was upgraded to the main for further assessment and w/u see exam Dizziness/DC s/p head injury yesterday Dunia uncomfortable, neuro intact ? Concussion -CTH pending -symptomatic relief in ED CP Since in ER and has since resolved No palpitations or SOB No h/o CAD or PE but has h/o lupus Stable at triage EKG unremarkable, trop pending, unlikely PE as not tachy and pain resolved 07/03/19 15:[address] head pending. Meds in progress, will reassess 07/03/19 16:21 Signed out to ZAKIYA Frank at this time <Deirdre Ramos - Last Filed: 07/03/19 20:52> - Medical Decision Making 07/07/19 07:27 I reviewed the case of the mid-level practitioner and was available for consultation while in the emergency department <Zheng Smith - Last Filed: 07/07/19 07:27> Discharge - Discharge Information Problems reviewed: Yes <Deirdre Ramos - Last Filed: 07/03/19 20:52> <Zheng Smith - Last Filed: 07/07/19 07:27> - Discharge Information Clinical Impression/Diagnosis: Concussion Condition: Stable Disposition: HOME - Follow up/Referral Referrals: Trent Pickard [Primary Care Provider] - - Patient Discharge Instructions Patient Printed Discharge Instructions: DI for Concussion Additional Instructions: rest and relax as much as possible follow up with your neurologist as soon as possible. - Post Discharge Activity
[2019-07-03 15:12] LABS: BASO % 1.4 % (0-2.0); EOS % 2.6 % (0-4.5); HEMATOCRIT 36.3 % (32.4-45.2); HEMOGLOBIN 12.3 GM/dL (10.7-15.3); LYMPH % 39.3 % (8-40); MCH 30.7 pg (25.7-33.7); MCHC 33.9 g/dl (32.0-36.0); MEAN CELL VOLUME 90.7 fl (80-96); MEAN PLT VOLUME 8.9 fl (7.5-11.1); MONO % 8.9 % (3.8-10.2); NEUT % 47.8 % (42.8-82.8); PLATELET COUNT 238 K/MM3 (134-434); RBC 4.01 M/mm3 (3.60-5.2); RDW 13.4 % (11.6-15.6); WHITE BLOOD COUNT 3.5 K/mm3 (4.0-10.0)
[2019-07-03 15:41] LABS: ALBUMIN 4.1 g/dl (3.4-5.0); ALK PHOS 77 U/L (45-117); ANION GAP 6 MMOL/L (8-16); BILIRUBIN,TOTAL 0.6 mg/dL (0.2-1); CALCIUM 9.5 mg/dL (8.5-10.1); CHLORIDE 102 mmol/L (98-107); CO2 30 mmol/L (21-32); CREATININE 0.7 mg/dL (0.55-1.3); GLUCOSE,RANDOM 130 mg/dL (74-106); POTASSIUM 3.8 mmol/L (3.5-5.1); SGOT/AST 16 U/L (15-37); SGPT/ALT 23 U/L (13-61); SODIUM 138 mmol/L (136-145); TOT PROT 6.9 g/dl (6.4-8.2)
[2019-07-03] MEDS ORDERED: SODIUM CHLORIDE 1,000 ML IV STA (15:45)
[2019-07-03] MEDS ORDERED: ONDANSETRON 4 MG/2 ML VIAL IVPUSH ONE (15:45)
[2019-07-03] MEDS ORDERED: ACETAMINOPHEN 1000 MG/100 ML VIAL (NON FORMULARY) IVPB ONE (15:45)
[2019-07-03] MEDS ORDERED: ONDANSETRON 4 MG/2 ML VIAL ONE (16:44)
[2019-07-03] MEDS ORDERED: ACETAMINOPHEN INJECTION 100 ML IVPB ONE (16:44)
--- NOTE | 2019-07-03 16:46 | PDOC ---
*Physical Exam - Vital Signs Last Vital Signs Temp Pulse Resp BP Pulse Ox 98.3 F 67 17 104/71 98 07/03/19 12:39 07/03/19 12:39 07/03/19 12:39 07/03/19 12:39 07/03/19 12:39 ED Treatment Course - LABORATORY CBC & Chemistry Diagram: 07/03/19 14:45 07/03/19 14:45 - ADDITIONAL ORDERS Additional order review: Laboratory Results 07/03/19 14:45 Sodium 138 Potassium 3.8 Chloride 102 Carbon Dioxide 30 Anion Gap 6 L BUN 13.0 Creatinine 0.7 Est GFR (CKD-EPI)AfAm 116.27 Est GFR (CKD-EPI)NonAf 100.32 Random Glucose 130 H Calcium 9.5 Total Bilirubin 0.6 AST 16 ALT 23 Alkaline Phosphatase 77 Creatine Kinase 60 Troponin I < 0.02 Total Protein 6.9 Albumin 4.1 07/03/19 14:45 RBC 4.01 MCV 90.7 MCHC 33.9 RDW 13.4 MPV 8.9 Neutrophils % 47.8 Lymphocytes % 39.3 Monocytes % 8.9 Eosinophils % 2.6 Basophils % 1.4 Medical Decision Making - Medical Decision Making CT head : negative. concussion precautions reviewed with patient. Discharge - Discharge Information Problems reviewed: Yes Clinical Impression/Diagnosis: Concussion Qualifiers: Encounter type: initial encounter Loss of consciousness presence/duration: without LOC Qualified Code(s): S06.0X0A - Concussion without loss of consciousness, initial encounter Condition: Stable Disposition: HOME - Follow up/Referral Referrals: Trent Pickard [Primary Care Provider] - - Patient Discharge Instructions Patient Printed Discharge Instructions: DI for Concussion Additional Instructions: rest and relax as much as possible follow up with your neurologist as soon as possible. - Post Discharge Activity
[2019-07-03 19:33] VITALS: BP 116/81; PULSE 59
--- NOTE | 2019-07-04 16:10 | EKG ---
Test Reason : Blood Pressure : / mmHG Vent. Rate : 055 BPM Atrial Rate : 055 BPM P-R Int : 200 ms QRS Dur : 078 ms QT Int : 454 ms P-R-T Axes : 053 079 024 degrees QTc Int : 434 ms SINUS BRADYCARDIA SEPTAL INFARCT (CITED ON OR BEFORE 18-FEB-2009) NONSPECIFIC ST ABNORMALITY ABNORMAL ECG Confirmed by MD QUEEN MOYSES ([id number]) on 07/04/2019 4:09:50 PM Referred By: Confirmed By:LEOBARDO QUEEN MD
== END 2019-07-03 19:36 | disposition home or self-care (01) ==
LOC: JER 12:21 → JERFT 12:21 → JER 19:36
PROC: 3E033NZ Introduction of Analgesics, Hypnotics, Sedatives into Peripheral Vein, Percutaneous Approach (ICD-10-PCS; principal; 2019-07-03)
PROC: 3E033GC Introduction of Other Therapeutic Substance into Peripheral Vein, Percutaneous Approach (ICD-10-PCS; 2019-07-03)
DX: R07.9 Chest pain, unspecified (principal); Z88.8 Allergy status to other drugs, medicaments and biological substances; Z88.6 Allergy status to analgesic agent; Z91.011 Allergy to milk products; I10 Essential (primary) hypertension; K59.00 Constipation, unspecified; E78.00 Pure hypercholesterolemia, unspecified
CPT/HCPCS: 36415; 70450-TC; 71046-TC-FY; 80053; 82550; 84484; 85025; 93005; 93010; 96374; 96375; 99283-25; J0131; J7030

== ENCOUNTER 2021-11-13 12:37 | Emergency (ER) | payer OTHER ==
[2021-11-13 13:07] VITALS: BP 165/85; PULSE 81; TEMP 98.6; BMI 18.3
[2021-11-13] MEDS ORDERED: SODIUM CHLORIDE 0.9% 500 ML INFUS.BAG IV ONE (15:20)
[2021-11-13] MEDS ORDERED: METOCLOPRAMIDE HCL INJECTION 10 MG/2 ML VIAL IVPUSH ONE (15:21)
[2021-11-13] MEDS ORDERED: ACETAMINOPHEN 1000 MG/100 ML BAG IVPB ONE (15:21)
[2021-11-13] MEDS ORDERED: METOCLOPRAMIDE HCL INJECTION 10 MG/2 ML VIAL ONE ×2 (15:55→15:58)
[2021-11-13] MEDS ORDERED: ACETAMINOPHEN INJECTION 100 ML IVPB ONE (15:56)
[2021-11-13 17:17] LABS: URINE APPEARANCE CLEAR; URINE BILIRUBIN NEGATIVE (NEGATIVE); URINE COLOR YELLOW; URINE GLUCOSE (UA) 3+ (NEGATIVE); URINE KETONE 1+ (NEGATIVE); URINE LEUK ESTERASE NEGATIVE (NEGATIVE); URINE NITRITE NEGATIVE (NEGATIVE); URINE PROTEIN NEGATIVE (NEGATIVE); URINE UROBILINOGEN 0.2 mg/dL (0.2-1.0)
[2021-11-13 17:21] LABS: EOS % 6.5 % (0-4.5); HEMATOCRIT 38.9 % (32.4-45.2); HEMOGLOBIN 12.9 GM/dL (10.7-15.3); MCH 30.6 pg (25.7-33.7); MCHC 33.1 g/dl (32.0-36.0); MEAN CELL VOLUME 92.5 fl (80-96); MEAN PLT VOLUME 9.2 fl (7.5-11.1); MONO % 7.9 % (3.8-10.2); NEUT % 53.6 % (42.8-82.8); PLATELET COUNT 207 10^3/uL (134-434); RDW 13.2 % (11.6-15.6); WHITE BLOOD COUNT 4.2 K/mm3 (4.0-10.0)
[2021-11-13 17:49] LABS: ALBUMIN 4.3 g/dl (3.4-5.0); BLOOD UREA NITROGEN 14.5 mg/dL (7-18); CALCIUM 9.6 mg/dL (8.5-10.1); MAGNESIUM 2.3 mg/dL (1.8-2.4)
[2021-11-13 17:52] LABS: CREATININE 0.7 mg/dL (0.55-1.3)
[2021-11-13 17:54] LABS: BILIRUBIN,TOTAL 0.4 mg/dL (0.2-1); TOT PROT 6.9 g/dl (6.4-8.2)
[2021-11-13] MEDS ORDERED: DEXAMETHASONE SOD PHOSPHATE 10 MG/1 ML VIAL IVPUSH ONE (19:51)
[2021-11-13] MEDS ORDERED: DEXAMETHASONE SOD PHOSPHATE 10 MG/1 ML VIAL ONE (20:06)
== END 2021-11-13 20:40 | disposition home or self-care (01) ==
LOC: JER 12:37
PROC: 3E033GC Introduction of Other Therapeutic Substance into Peripheral Vein, Percutaneous Approach (ICD-10-PCS; principal; 2021-11-13)
DX: R55 Syncope and collapse (principal); G43.909 Migraine, unspecified, not intractable, without status migrainosus
CPT/HCPCS: 36415; 80053; 81003; 83735; 85025; 93005; 93010; 99284-25

== ENCOUNTER 2021-11-16 17:48 | Emergency (ER) | payer OTHER ==
[2021-11-16 18:31] VITALS: BP 166/90; PULSE 77; TEMP 100; BMI 18.3
[2021-11-16] MEDS ORDERED: oxyCODONE HCL 5 MG TABLET PO ONE (20:33)
[2021-11-16] MEDS ORDERED: oxyCODONE HCL 5 MG TABLET ONE (21:38)
== END 2021-11-16 22:02 | disposition home or self-care (01) ==
LOC: JER 17:48
DX: S99.911A Unspecified injury of right ankle, initial encounter (principal); X50.9XXA Other and unspecified overexertion or strenuous movements or postures, initial encounter
CPT/HCPCS: 73610-TC-RT-FY; 73630-TC-RT-FY; 99283-25

== ENCOUNTER 2022-06-19 13:25 | Emergency (ER) | payer OTHER ==
[2022-06-19 13:33] VITALS: TEMP 98.1; BMI 17.2
[2022-06-19 16:45] LABS: BASO % 0.7 % (0-2.0); EOS % 0.6 % (0-4.5); HEMATOCRIT 34.3 % (32.4-45.2); HEMOGLOBIN 11.8 GM/dL (10.7-15.3); LYMPH % 33.1 % (8-40); MCHC 34.3 g/dl (32.0-36.0); MEAN CELL VOLUME 99.2 fl (80-96); MEAN PLT VOLUME 8.5 fl (7.5-11.1); MONO % 10.2 % (3.8-10.2); NEUT % 55.4 % (42.8-82.8); PLATELET COUNT 193 10^3/uL (134-434); RBC 3.46 M/mm3 (3.60-5.2); RDW 15.1 % (11.6-15.6); WHITE BLOOD COUNT 3.7 K/mm3 (4.0-10.0)
[2022-06-19 17:06] LABS: CALCIUM 9.3 mg/dL (8.5-10.1)
[2022-06-19 17:07] LABS: BLOOD UREA NITROGEN 19.9 mg/dL (7-18)
[2022-06-19 17:10] LABS: CREATININE 0.8 mg/dL (0.55-1.3)
[2022-06-19 19:03] VITALS: BP 102/62; PULSE 72; RESP 18
== END 2022-06-19 19:03 | disposition home or self-care (01) ==
LOC: JER 13:25
DX: R60.0 Localized edema (principal); M79.604 Pain in right leg; M79.605 Pain in left leg
CPT/HCPCS: 36415; 80048; 82550; 85025; 93970-TC; 99284-25